=== PATIENT | female | born 1950 | race Caucasian/White ===

== ENCOUNTER 2018-10-13 14:03 | Inpatient (IN) | payer MEDICARE, OTHER ==
[~2018-10-13] VITALS: Ht 160 cm; Wt 53.5 kg
[2018-10-13] MEDS ORDERED: MAGNESIUM HYDROXIDE 30 ML UDC PO PRN (14:30)
[2018-10-13] MEDS ORDERED: TEMAZEPAM 7.5 MG CAPSULE PO PRN (14:30)
[2018-10-13] MEDS ORDERED: MAG HYDROX/AL HYDROX/SIMETH 30 ML UDC PO PRN (14:30)
[2018-10-13] MEDS ORDERED: ACET-2605 PO (14:55)
[2018-10-13] MEDS ORDERED: IPRA3AMP23 IH (14:55)
[2018-10-13] MEDS ORDERED: LORA1TAB PO (14:55)
[2018-10-13] MEDS ORDERED: ZOLP10TA6 PO (14:55)
[2018-10-13] MEDS ORDERED: ATOR10TA PO (14:55)
[2018-10-13] MEDS ORDERED: ALBU18HF2 IH (14:55)
[2018-10-13] MEDS ORDERED: TIZA4TAB4 PO (14:55)
[2018-10-13] MEDS ORDERED: UMEC62.5 INH (14:55)
[2018-10-13] MEDS ORDERED: TRAZ-214 PO (14:55)
[2018-10-13] MEDS ORDERED: BREX1TAB PO (14:55)
[2018-10-13] MEDS ORDERED: FLUT1BLS INH (14:55)
[2018-10-13] MEDS ORDERED: LURA60TA PO (14:55)
[2018-10-13] MEDS ORDERED: MONT10TA22 PO (14:55)
[2018-10-13] MEDS ORDERED: LEVO112T7 PO (14:55)
[2018-10-13] MEDS: LORAZEPAM 0.5 MG TABLET PO PRN (14:55)
[2018-10-13] MEDS ORDERED: PANT20TA3 PO (14:55)
[2018-10-13] MEDS ORDERED: DESV50TA PO (14:55)
[2018-10-13] MEDS: ACETAMINOPHEN 325 MG TABLET PO PRN (14:58)
[2018-10-13 16:00] VITALS: BP 122/95
[2018-10-13] MEDS ORDERED: OLANZAPINE 10 MG VIAL IM ONE (16:30)
[2018-10-13] MEDS: OLANZAPINE 2.5 MG TABLET PO SCH (17:21)
[2018-10-13] MEDS: IPRATROPIUM NEB FS 0.5 MG/2.5 ML AMPUL.NEB NEB SCH ×2 (18:30→19:30)
[2018-10-13] MEDS ORDERED: MISCELLANEOUS MED 1 EA EA PO PRN (18:30)
[2018-10-13] MEDS: HYDROCODONE/APAP 5/325MG 1 EACH TABLET PO PRN (19:19)
[2018-10-13 20:00] VITALS: BP 129/52
[2018-10-13] MEDS: DIVALPROEX SODIUM 125 MG TABLET.DR PO SCH (21:37)
[2018-10-14] MEDS: IPRATROPIUM NEB FS 0.5 MG/2.5 ML AMPUL.NEB NEB SCH ×4 (01:30→19:30)
[2018-10-14 08:00] VITALS: BP 112/66
[2018-10-14 08:01] LABS: POTASSIUM 3.5 mmol/L (3.5-5.1)
[2018-10-14 08:02] LABS: ALBUMIN 3.1 g/dL (3.4-5.0); BILIRUBIN,TOTAL 0.3 mg/dL (0.2-1.0); CALCIUM, SERUM 8.7 mg/dL (8.5-10.1); CREATININE 0.7 mg/dL (0.6-1.3); TOTAL PROTEIN, SERUM 5.8 g/dL (6.4-8.2)
[2018-10-14 08:03] LABS: CHOLESTEROL 171 mg/dL (<200); HDL CHOLESTEROL 48 mg/dL (40-60); LDL 102 mg/dL (0-99); TRIGLYCERIDES 167 mg/dL (30-150)
[2018-10-14] MEDS: FLUTICASONE/VILANTEROL 1 EACH BLST.W.DEV IH SCH (09:00)
[2018-10-14] MEDS: LEVOTHYROXINE SODIUM 112 MCG TABLET PO SCH (09:33)
[2018-10-14] MEDS: OLANZAPINE 2.5 MG TABLET PO SCH ×2 (09:33→16:12)
[2018-10-14] MEDS: DIVALPROEX SODIUM 125 MG TABLET.DR PO SCH ×2 (09:33→20:19)
[2018-10-14] MEDS: MONTELUKAST SODIUM (10MG) 10 MG TABLET PO SCH (09:33)
[2018-10-14] MEDS: ATORVASTATIN 10 MG TABLET PO SCH (09:33)
[2018-10-14] MEDS: NICOTINE PATCH (7MG) 7 MG PATCH.TD24 TD SCH (09:35)
[2018-10-14] MEDS: PANTOPRAZOLE 40 MG TABLET.DR PO SCH (09:36)
[2018-10-14] MEDS: HYDROCODONE/APAP 5/325MG 1 EACH TABLET PO PRN ×2 (09:48→20:20)
[2018-10-14] MEDS ORDERED: OLANZAPINE 10 MG VIAL IM ONE (11:30)
[2018-10-14] MEDS ORDERED: ONDANSETRON HCL/PF 4 MG/2 ML VIAL ONE (12:11)
[2018-10-14] MEDS: ACETAMINOPHEN 325 MG TABLET PO PRN (14:40)
[2018-10-14 16:00] VITALS: BP 90/55
[2018-10-14] MEDS: TIZANIDINE HCL 4 MG TABLET PO SCH (18:00)
[2018-10-14 20:00] VITALS: BP 100/61
[2018-10-15] MEDS: IPRATROPIUM NEB FS 0.5 MG/2.5 ML AMPUL.NEB NEB SCH ×4 (01:30→19:30)
[2018-10-15 08:00] VITALS: BP 101/63
[2018-10-15] MEDS: FLUTICASONE/VILANTEROL 1 EACH BLST.W.DEV IH SCH (09:00)
[2018-10-15] MEDS: PANTOPRAZOLE 40 MG TABLET.DR PO SCH (09:03)
[2018-10-15] MEDS: LEVOTHYROXINE SODIUM 112 MCG TABLET PO SCH (09:03)
[2018-10-15] MEDS: MONTELUKAST SODIUM (10MG) 10 MG TABLET PO SCH (09:03)
[2018-10-15] MEDS: ATORVASTATIN 10 MG TABLET PO SCH (09:03)
[2018-10-15] MEDS: NICOTINE PATCH (7MG) 7 MG PATCH.TD24 TD SCH (09:03)
[2018-10-15] MEDS: DIVALPROEX SODIUM 125 MG TABLET.DR PO SCH ×2 (09:03→21:52)
[2018-10-15] MEDS: OLANZAPINE 2.5 MG TABLET PO SCH ×2 (09:04→15:48)
[2018-10-15] MEDS: HYDROCODONE/APAP 5/325MG 1 EACH TABLET PO PRN ×2 (09:04→18:01)
[2018-10-15 16:00] VITALS: BP 122/73
[2018-10-15] MEDS: TIZANIDINE HCL 4 MG TABLET PO SCH (17:24)
[2018-10-15 20:00] VITALS: BP 98/56
[2018-10-15] MEDS: TRAZODONE 50 MG TABLET PO PRN (21:52)
[2018-10-16] MEDS: IPRATROPIUM NEB FS 0.5 MG/2.5 ML AMPUL.NEB NEB SCH ×4 (01:30→20:56)
[2018-10-16 08:00] VITALS: BP 109/61
[2018-10-16] MEDS: FLUTICASONE/VILANTEROL 1 EACH BLST.W.DEV IH SCH (08:14)
[2018-10-16] MEDS: LEVOTHYROXINE SODIUM 112 MCG TABLET PO SCH (08:37)
[2018-10-16] MEDS: ATORVASTATIN 10 MG TABLET PO SCH (08:37)
[2018-10-16] MEDS: HYDROCODONE/APAP 5/325MG 1 EACH TABLET PO PRN ×2 (08:37→20:47)
[2018-10-16] MEDS: OLANZAPINE 2.5 MG TABLET PO SCH ×2 (08:37→15:39)
[2018-10-16] MEDS: DIVALPROEX SODIUM 125 MG TABLET.DR PO SCH ×2 (08:37→20:31)
[2018-10-16] MEDS: NICOTINE PATCH (7MG) 7 MG PATCH.TD24 TD SCH (08:37)
[2018-10-16] MEDS: MONTELUKAST SODIUM (10MG) 10 MG TABLET PO SCH (08:38)
[2018-10-16] MEDS: PANTOPRAZOLE 40 MG TABLET.DR PO SCH (08:39)
[2018-10-16] MEDS: LORAZEPAM 0.5 MG TABLET PO PRN (12:38)
[2018-10-16] MEDS: ACETAMINOPHEN 325 MG TABLET PO PRN (12:38)
[2018-10-16 16:00] VITALS: BP 117/64
[2018-10-16] MEDS: TIZANIDINE HCL 4 MG TABLET PO SCH (17:12)
[2018-10-16 20:00] VITALS: BP 112/57
[2018-10-16] MEDS: TRAZODONE 50 MG TABLET PO PRN (22:38)
[2018-10-17] MEDS: IPRATROPIUM NEB FS 0.5 MG/2.5 ML AMPUL.NEB NEB SCH ×4 (01:30→20:18)
[2018-10-17] MEDS: LEVOTHYROXINE SODIUM 112 MCG TABLET PO SCH (07:30)
[2018-10-17] MEDS: PANTOPRAZOLE 40 MG TABLET.DR PO SCH (07:30)
[2018-10-17 08:13] VITALS: BP 104/59
[2018-10-17] MEDS: DIVALPROEX SODIUM 125 MG TABLET.DR PO SCH (08:50)
[2018-10-17] MEDS: OLANZAPINE 2.5 MG TABLET PO SCH ×2 (08:51→17:24)
[2018-10-17] MEDS: ATORVASTATIN 10 MG TABLET PO SCH ×2 (08:52→12:56)
[2018-10-17] MEDS: MONTELUKAST SODIUM (10MG) 10 MG TABLET PO SCH (08:53)
[2018-10-17] MEDS: NICOTINE PATCH (7MG) 7 MG PATCH.TD24 TD SCH (08:53)
[2018-10-17] MEDS: FLUTICASONE/VILANTEROL 1 EACH BLST.W.DEV IH SCH (08:58)
[2018-10-17] MEDS: HYDROCODONE/APAP 5/325MG 1 EACH TABLET PO PRN ×2 (10:40→18:30)
[2018-10-17] MEDS: LORAZEPAM 0.5 MG TABLET PO PRN (14:21)
[2018-10-17 16:00] VITALS: BP 100/58
[2018-10-17] MEDS: TIZANIDINE HCL 4 MG TABLET PO SCH (17:24)
[2018-10-17 20:00] VITALS: BP 85/47
[2018-10-17] MEDS: ALBUTEROL FS 2.5 MG/0.5 ML VIAL.NEB NEB PRN (20:18)
[2018-10-17 21:00] VITALS: BP_SYST 124; BP_SYST 90; BP_DIAS 57; BP_DIAS 58
[2018-10-17] MEDS ORDERED: DIVALPROEX SODIUM 250 MG TABLET.DR PO SCH ×2 (21:00)
[2018-10-17 21:30] VITALS: BP 134/75
[2018-10-17] MEDS: DIVALPROEX SODIUM 500 MG TABLET.DR PO SCH (21:47)
[2018-10-17] MEDS: TRAZODONE 50 MG TABLET PO PRN (21:48)
[2018-10-18] MEDS: IPRATROPIUM NEB FS 0.5 MG/2.5 ML AMPUL.NEB NEB SCH ×4 (01:30→19:30)
[2018-10-18 07:15] LABS: CALCIUM, SERUM 8.7 mg/dL (8.5-10.1); CREATININE 0.8 mg/dL (0.6-1.3); POTASSIUM 4.1 mmol/L (3.5-5.1)
[2018-10-18 08:00] VITALS: BP 101/57
[2018-10-18] MEDS: DIVALPROEX SODIUM 250 MG TABLET.DR PO SCH (08:09)
[2018-10-18] MEDS: FLUTICASONE/VILANTEROL 1 EACH BLST.W.DEV IH SCH (08:09)
[2018-10-18] MEDS: NICOTINE PATCH (7MG) 7 MG PATCH.TD24 TD SCH (08:09)
[2018-10-18] MEDS: OLANZAPINE 2.5 MG TABLET PO SCH ×2 (08:09→17:13)
[2018-10-18] MEDS: LEVOTHYROXINE SODIUM 112 MCG TABLET PO SCH (08:09)
[2018-10-18] MEDS: PANTOPRAZOLE 40 MG TABLET.DR PO SCH (08:10)
[2018-10-18] MEDS: MONTELUKAST SODIUM (10MG) 10 MG TABLET PO SCH (08:10)
[2018-10-18] MEDS: ATORVASTATIN 10 MG TABLET PO SCH (08:10)
[2018-10-18] MEDS: HYDROCODONE/APAP 5/325MG 1 EACH TABLET PO PRN (08:21)
[2018-10-18] MEDS: LORAZEPAM 0.5 MG TABLET PO PRN ×2 (09:37→21:28)
[2018-10-18] MEDS: ACETAMINOPHEN 325 MG TABLET PO PRN (12:23)
[2018-10-18 16:01] VITALS: BP 100/56
[2018-10-18] MEDS: TIZANIDINE HCL 4 MG TABLET PO SCH (17:13)
[2018-10-18] MEDS: DIVALPROEX SODIUM 500 MG TABLET.DR PO SCH (21:28)
[2018-10-19] MEDS: IPRATROPIUM NEB FS 0.5 MG/2.5 ML AMPUL.NEB NEB SCH ×4 (00:43→19:54)
[2018-10-19 08:00] VITALS: BP 100/64
[2018-10-19] MEDS: DIVALPROEX SODIUM 250 MG TABLET.DR PO SCH (08:37)
[2018-10-19] MEDS: LEVOTHYROXINE SODIUM 112 MCG TABLET PO SCH (08:37)
[2018-10-19] MEDS: OLANZAPINE 2.5 MG TABLET PO SCH ×2 (08:38→13:07)
[2018-10-19] MEDS: ATORVASTATIN 10 MG TABLET PO SCH (08:38)
[2018-10-19] MEDS: MONTELUKAST SODIUM (10MG) 10 MG TABLET PO SCH (08:38)
[2018-10-19] MEDS: PANTOPRAZOLE 40 MG TABLET.DR PO SCH (08:39)
[2018-10-19] MEDS: FLUTICASONE/VILANTEROL 1 EACH BLST.W.DEV IH SCH (08:45)
[2018-10-19] MEDS: NICOTINE PATCH (7MG) 7 MG PATCH.TD24 TD SCH (09:17)
[2018-10-19] MEDS: HYDROCODONE/APAP 5/325MG 1 EACH TABLET PO PRN (09:17)
[2018-10-19] MEDS: LORAZEPAM 0.5 MG TABLET PO PRN ×2 (11:17→20:34)
[2018-10-19] MEDS: ACETAMINOPHEN 325 MG TABLET PO PRN (15:20)
[2018-10-19 16:00] VITALS: BP 101/56
[2018-10-19] MEDS ORDERED: OLANZAPINE 2.5 MG TABLET PO SCH (17:00)
[2018-10-19] MEDS: TIZANIDINE HCL 4 MG TABLET PO SCH (17:04)
[2018-10-19 20:18] VITALS: BP 89/52
[2018-10-19] MEDS: DIVALPROEX SODIUM 500 MG TABLET.DR PO SCH (20:34)
[2018-10-20] MEDS: IPRATROPIUM NEB FS 0.5 MG/2.5 ML AMPUL.NEB NEB SCH ×4 (01:30→20:22)
[2018-10-20 08:00] VITALS: BP 118/71
[2018-10-20] MEDS: ATORVASTATIN 10 MG TABLET PO SCH (09:05)
[2018-10-20] MEDS: LEVOTHYROXINE SODIUM 112 MCG TABLET PO SCH (09:05)
[2018-10-20] MEDS: DIVALPROEX SODIUM 250 MG TABLET.DR PO SCH ×2 (09:05→12:11)
[2018-10-20] MEDS: OLANZAPINE 2.5 MG TABLET PO SCH (09:06)
[2018-10-20] MEDS: MONTELUKAST SODIUM (10MG) 10 MG TABLET PO SCH (09:06)
[2018-10-20] MEDS: HYDROCODONE/APAP 5/325MG 1 EACH TABLET PO PRN ×2 (09:06→15:24)
[2018-10-20] MEDS: PANTOPRAZOLE 40 MG TABLET.DR PO SCH (09:06)
[2018-10-20] MEDS: FLUTICASONE/VILANTEROL 1 EACH BLST.W.DEV IH SCH (09:07)
[2018-10-20] MEDS: NICOTINE PATCH (7MG) 7 MG PATCH.TD24 TD SCH (09:07)
[2018-10-20] MEDS: LORAZEPAM 0.5 MG TABLET PO PRN ×2 (10:50→16:46)
[2018-10-20] MEDS: ACETAMINOPHEN 325 MG TABLET PO PRN (12:10)
[2018-10-20] MEDS ORDERED: OLANZAPINE 2.5 MG TABLET PO SCH (13:00)
[2018-10-20 16:00] VITALS: BP 100/60
[2018-10-20] MEDS: TIZANIDINE HCL 4 MG TABLET PO SCH (17:15)
[2018-10-20 20:00] VITALS: BP 93/62
[2018-10-20] MEDS: DIVALPROEX SODIUM 500 MG TABLET.DR PO SCH (21:03)
[2018-10-20] MEDS ORDERED: OLANZAPINE 5 MG TABLET PO SCH (22:00)
[2018-10-20] MEDS: ZOLPIDEM TARTRATE 5 MG TABLET PO PRN (22:10)
[2018-10-21] MEDS: IPRATROPIUM NEB FS 0.5 MG/2.5 ML AMPUL.NEB NEB SCH ×4 (01:30→20:08)
[2018-10-21 07:18] LABS: BASOPHILS % (AUTO) 0.3 % (0.0-2.0); EOSINOPHILS % (AUTO) 3.4 % (0.0-6.0); HEMATOCRIT 39 % (33-45); HEMOGLOBIN 13.1 g/dL (11.5-14.8); LYMPHOCYTES # (AUTO) 1.7 /CMM (0.8-4.8); LYMPHOCYTES % (AUTO) 29.7 % (20.0-44.0); MEAN CORPUSCULAR HGB CONC 34 g/dl (31.0-36.0); MEAN CORPUSCULAR VOLUME 86 fL (82-100); MONOCYTES # (AUTO) 0.5 /CMM (0.1-1.30); NEUTROPHILS # (AUTO) 3.4 /CMM (1.8-8.9); NEUTROPHILS % (AUTO) 58.6 % (43.0-81.0); PLATELET COUNT (AUTO) 224 /CMM (150-450); RED BLOOD CELL COUNT(AUTO) 4.53 MIL/uL (4.0-5.2); WHITE BLOOD COUNT (AUTO) 5.8 K/uL (4.3-11.0)
[2018-10-21 07:37] LABS: BILIRUBIN,TOTAL 0.3 mg/dL (0.2-1.0); CALCIUM, SERUM 8.6 mg/dL (8.5-10.1); CREATININE 0.8 mg/dL (0.6-1.3); MAGNESIUM 2.2 mg/dL (1.8-2.4); POTASSIUM 4.1 mmol/L (3.5-5.1); TOTAL PROTEIN, SERUM 5.9 g/dL (6.4-8.2)
[2018-10-21 08:00] VITALS: BP 129/65
[2018-10-21] MEDS: ALBUTEROL FS 2.5 MG/0.5 ML VIAL.NEB NEB PRN ×2 (08:14→13:34)
[2018-10-21] MEDS ORDERED: OLANZAPINE 2.5 MG TABLET PO SCH (09:00)
[2018-10-21] MEDS: OLANZAPINE 2.5 MG TABLET PO SCH ×3 (09:06→18:06)
[2018-10-21] MEDS: NICOTINE PATCH (7MG) 7 MG PATCH.TD24 TD SCH (09:06)
[2018-10-21] MEDS: DIVALPROEX SODIUM 250 MG TABLET.DR PO SCH ×2 (09:07→12:45)
[2018-10-21] MEDS: PANTOPRAZOLE 40 MG TABLET.DR PO SCH (09:07)
[2018-10-21] MEDS: ATORVASTATIN 10 MG TABLET PO SCH (09:07)
[2018-10-21] MEDS: MONTELUKAST SODIUM (10MG) 10 MG TABLET PO SCH (09:07)
[2018-10-21] MEDS: LEVOTHYROXINE SODIUM 112 MCG TABLET PO SCH (09:08)
[2018-10-21] MEDS: FLUTICASONE/VILANTEROL 1 EACH BLST.W.DEV IH SCH (09:18)
[2018-10-21] MEDS: LORAZEPAM 0.5 MG TABLET PO PRN (09:20)
[2018-10-21] MEDS: HYDROCODONE/APAP 5/325MG 1 EACH TABLET PO PRN ×2 (10:45→16:10)
[2018-10-21] MEDS ORDERED: OLANZAPINE 10 MG VIAL IM ONE (13:30)
[2018-10-21 16:00] VITALS: BP 115/65
[2018-10-21] MEDS: TIZANIDINE HCL 4 MG TABLET PO SCH (18:06)
[2018-10-21 20:00] VITALS: BP 98/60
[2018-10-21] MEDS: DIVALPROEX SODIUM 500 MG TABLET.DR PO SCH (21:25)
[2018-10-21] MEDS: ZOLPIDEM TARTRATE 5 MG TABLET PO PRN (21:25)
[2018-10-22] MEDS: IPRATROPIUM NEB FS 0.5 MG/2.5 ML AMPUL.NEB NEB SCH ×4 (01:29→19:41)
[2018-10-22] MEDS: ACETAMINOPHEN 325 MG TABLET PO PRN (02:57)
[2018-10-22 08:00] VITALS: BP 116/78
[2018-10-22] MEDS: OLANZAPINE 5 MG TABLET PO SCH ×3 (08:13→17:21)
[2018-10-22] MEDS: NICOTINE PATCH (7MG) 7 MG PATCH.TD24 TD SCH (08:13)
[2018-10-22] MEDS: MONTELUKAST SODIUM (10MG) 10 MG TABLET PO SCH (08:13)
[2018-10-22] MEDS: DIVALPROEX SODIUM 250 MG TABLET.DR PO SCH ×2 (08:13→12:25)
[2018-10-22] MEDS: LEVOTHYROXINE SODIUM 112 MCG TABLET PO SCH (08:13)
[2018-10-22] MEDS: LORAZEPAM 0.5 MG TABLET PO PRN (08:14)
[2018-10-22] MEDS: FLUTICASONE/VILANTEROL 1 EACH BLST.W.DEV IH SCH (08:14)
[2018-10-22] MEDS: PANTOPRAZOLE 40 MG TABLET.DR PO SCH (08:14)
[2018-10-22] MEDS: ATORVASTATIN 10 MG TABLET PO SCH (08:15)
[2018-10-22] MEDS: BENZTROPINE MESYLATE (1 MG) 1 MG TABLET PO SCH ×3 (11:44→17:21)
[2018-10-22] MEDS: LORAZEPAM 0.5 MG TABLET PO SCH ×2 (12:25→17:21)
[2018-10-22] MEDS: HYDROCODONE/APAP 5/325MG 1 EACH TABLET PO PRN (13:38)
[2018-10-22 16:00] VITALS: BP 118/71
[2018-10-22] MEDS: TIZANIDINE HCL 4 MG TABLET PO SCH (17:21)
[2018-10-22 20:00] VITALS: BP 93/57
[2018-10-22] MEDS: ZOLPIDEM TARTRATE 5 MG TABLET PO PRN (20:36)
[2018-10-22] MEDS: DIVALPROEX SODIUM 500 MG TABLET.DR PO SCH (20:36)
[2018-10-23] MEDS: ACETAMINOPHEN 325 MG TABLET PO PRN (00:18)
[2018-10-23] MEDS: IPRATROPIUM NEB FS 0.5 MG/2.5 ML AMPUL.NEB NEB SCH ×4 (00:50→19:35)
[2018-10-23 08:00] VITALS: BP 109/64
[2018-10-23] MEDS: NICOTINE PATCH (7MG) 7 MG PATCH.TD24 TD SCH (08:53)
[2018-10-23] MEDS: LEVOTHYROXINE SODIUM 112 MCG TABLET PO SCH (08:53)
[2018-10-23] MEDS: BENZTROPINE MESYLATE (1 MG) 1 MG TABLET PO SCH ×3 (08:53→17:19)
[2018-10-23] MEDS: ATORVASTATIN 10 MG TABLET PO SCH (08:53)
[2018-10-23] MEDS: LORAZEPAM 0.5 MG TABLET PO SCH ×3 (08:53→17:19)
[2018-10-23] MEDS: MONTELUKAST SODIUM (10MG) 10 MG TABLET PO SCH (08:53)
[2018-10-23] MEDS: PANTOPRAZOLE 40 MG TABLET.DR PO SCH (08:53)
[2018-10-23] MEDS: OLANZAPINE 5 MG TABLET PO SCH ×3 (08:54→17:19)
[2018-10-23] MEDS: FLUTICASONE/VILANTEROL 1 EACH BLST.W.DEV IH SCH (08:54)
[2018-10-23] MEDS: DIVALPROEX SODIUM 250 MG TABLET.DR PO SCH ×3 (08:55→17:19)
[2018-10-23] MEDS: HYDROCODONE/APAP 5/325MG 1 EACH TABLET PO PRN ×2 (10:39→18:49)
[2018-10-23 16:00] VITALS: BP 104/71
[2018-10-23] MEDS: TIZANIDINE HCL 4 MG TABLET PO SCH (17:20)
[2018-10-23 20:00] VITALS: BP 125/75
[2018-10-23 20:10] VITALS: BP 125/75
[2018-10-23] MEDS: DIVALPROEX SODIUM 500 MG TABLET.DR PO SCH (21:12)
[2018-10-23] MEDS: ZOLPIDEM TARTRATE 5 MG TABLET PO PRN (21:12)
[2018-10-23] MEDS: LORAZEPAM 0.5 MG TABLET PO PRN (22:48)
[2018-10-24] MEDS: IPRATROPIUM NEB FS 0.5 MG/2.5 ML AMPUL.NEB NEB SCH ×4 (01:30→19:18)
[2018-10-24 08:00] VITALS: BP 109/71
[2018-10-24] MEDS: OLANZAPINE 5 MG TABLET PO SCH ×2 (09:05→13:16)
[2018-10-24] MEDS: DIVALPROEX SODIUM 250 MG TABLET.DR PO SCH ×3 (09:05→16:55)
[2018-10-24] MEDS: ATORVASTATIN 10 MG TABLET PO SCH (09:05)
[2018-10-24] MEDS: BENZTROPINE MESYLATE (1 MG) 1 MG TABLET PO SCH ×3 (09:06→16:55)
[2018-10-24] MEDS: MONTELUKAST SODIUM (10MG) 10 MG TABLET PO SCH (09:06)
[2018-10-24] MEDS: LEVOTHYROXINE SODIUM 112 MCG TABLET PO SCH (09:06)
[2018-10-24] MEDS: PANTOPRAZOLE 40 MG TABLET.DR PO SCH (09:07)
[2018-10-24] MEDS: NICOTINE PATCH (7MG) 7 MG PATCH.TD24 TD SCH (09:07)
[2018-10-24] MEDS: LORAZEPAM 0.5 MG TABLET PO SCH ×3 (09:10→16:55)
[2018-10-24] MEDS: FLUTICASONE/VILANTEROL 1 EACH BLST.W.DEV IH SCH (09:10)
[2018-10-24] MEDS: HYDROCODONE/APAP 5/325MG 1 EACH TABLET PO PRN ×2 (11:38→18:04)
[2018-10-24] MEDS: ALBUTEROL FS 2.5 MG/0.5 ML VIAL.NEB NEB PRN ×2 (14:05→19:18)
[2018-10-24 16:00] VITALS: BP 120/67
[2018-10-24] MEDS: TIZANIDINE HCL 4 MG TABLET PO SCH (17:59)
[2018-10-24] MEDS: OLANZAPINE 2.5 MG TABLET PO SCH (18:00)
[2018-10-24 20:04] VITALS: BP 98/49
[2018-10-24] MEDS: DIVALPROEX SODIUM 500 MG TABLET.DR PO SCH (20:47)
[2018-10-24 21:00] VITALS: BP 130/78
[2018-10-24] MEDS: ZOLPIDEM TARTRATE 5 MG TABLET PO PRN (21:33)
[2018-10-25] MEDS: IPRATROPIUM NEB FS 0.5 MG/2.5 ML AMPUL.NEB NEB SCH (01:30)
[2018-10-25 08:00] VITALS: BP 104/59
[2018-10-25] MEDS: PANTOPRAZOLE 40 MG TABLET.DR PO SCH (08:19)
[2018-10-25] MEDS: BENZTROPINE MESYLATE (1 MG) 1 MG TABLET PO SCH ×2 (08:20→13:00)
[2018-10-25] MEDS: MONTELUKAST SODIUM (10MG) 10 MG TABLET PO SCH (08:20)
[2018-10-25] MEDS: ATORVASTATIN 10 MG TABLET PO SCH (08:20)
[2018-10-25] MEDS: DIVALPROEX SODIUM 250 MG TABLET.DR PO SCH ×2 (08:20→13:00)
[2018-10-25] MEDS: OLANZAPINE 2.5 MG TABLET PO SCH ×2 (08:20→13:00)
[2018-10-25] MEDS: LEVOTHYROXINE SODIUM 112 MCG TABLET PO SCH (08:20)
[2018-10-25] MEDS: NICOTINE PATCH (7MG) 7 MG PATCH.TD24 TD SCH (08:20)
[2018-10-25] MEDS: LORAZEPAM 0.5 MG TABLET PO SCH ×2 (08:20→13:00)
[2018-10-25] MEDS: FLUTICASONE/VILANTEROL 1 EACH BLST.W.DEV IH SCH (08:31)
[2018-10-25] MEDS: HYDROCODONE/APAP 5/325MG 1 EACH TABLET PO PRN (08:34)
== END 2018-10-25 13:30 | DRG 885 ==
LOC: GPS 14:03
PROVIDERS: ADMIT Psychiatry & Neurology Psychosomatic Medicine; ATTEND Psychiatry & Neurology Psychosomatic Medicine
DX: F25.0 Schizoaffective disorder, bipolar type (principal); J44.1 Chronic obstructive pulmonary disease with (acute) exacerbation; N17.9 Acute kidney failure, unspecified; R45.851 Suicidal ideations; E44.0 Moderate protein-calorie malnutrition; F32.9 Major depressive disorder, single episode, unspecified; E78.5 Hyperlipidemia, unspecified; E03.9 Hypothyroidism, unspecified; F41.9 Anxiety disorder, unspecified; F29 Unspecified psychosis not due to a substance or known physiological condition; F13.90 Sedative, hypnotic, or anxiolytic use, unspecified, uncomplicated; Z73.6 Limitation of activities due to disability; Z98.890 Other specified postprocedural states; F17.200 Nicotine dependence, unspecified, uncomplicated; Z79.899 Other long term (current) drug therapy; E86.0 Dehydration; G89.4 Chronic pain syndrome; Z91.5 Personal history of self-harm
CPT/HCPCS: 36415; 80048-TC; 80053-TC; 80061-TC; 80164-TC; 83735-TC; 85025-TC; 87081-TC; 94799-TC; J2405; J3490

== ENCOUNTER 2019-12-21 13:30 | Inpatient (IN) | payer MEDICARE, OTHER ==
[~2019-12-21] VITALS: Ht 157.5 cm; Wt 51.7 kg
[~2019-12-21 13:30] MED LIST: ACET-2605 PO; ALBU18HF2 IH; ATOR10TA PO; FLUT1BLS INH; IPRA3AMP23 IH; LEVO112T7 PO; MONT10TA22 PO; PANT20TA3 PO; TIZA4TAB5 PO; UMEC62.5 INH
[2019-12-21] MEDS ORDERED: MAG HYDROX/AL HYDROX/SIMETH 30 ML UDC PO PRN (14:00)
[2019-12-21] MEDS ORDERED: BLOOD SUGAR DIAGNOSTIC 1 EACH STRIP IN ONE (14:00)
[2019-12-21] MEDS: LORAZEPAM 0.5 MG TABLET PO PRN (14:12)
--- NOTE | 2019-12-21 14:18 | NUR ---
GPS RN NOTE: ADMISSION AT 1345 PATIENT WAS RECEIVED ON THE UNIT. PATIENT IS A 69 YEAR OLD FEMALE. PATIENT IS ADMITTED ON A 5150 HOLD FOR DTS, "ADULT FEMALE CONTINUES OT ENDORSE SUICIDAL IDEATION AND DESIRE TO . ADULT FEMALE REPORTS PLANS, MEANS, INTENT TO KILL SELF TODAY BY OVERDOSING ON HER MEDICATIONS (PAIN AND PSYCHIATRIC). ADULT FEMALE PRESENTS TEARFUL, DEPRESSED, ANXIOUS AND SHAKY. ADULT FEMALE UNABLE TO PARTICIPATE IN A MEANINGFUL SAFETY PLAN DUE TO A MENTAL HEALTH DISORDER". UPON FACE TO FACE EVALUATION PATIENT PRESENTS TEARFUL, TREMULOUS, AND DEPRESSED. PATIENT CONTINUES TO VERBALIZE SI. PSYCHIATRIST DR TENORIO AND MD DR COVINGTON NOTIFIED OF ADMISSION. ORDERS PLACED. PATIENT SKIN CHECKED AND IS INTACT. NO WOUNDS NOTICED. PATIENT RECEIVED PATIENT HANDBOOK. SAFETY PRECAUTIONS IN PLACE. BED LOW AND LOCKED WITH 2 SIDE RAILS UP FOR SAFETY. CALL GARCIA WITHIN REACH. WILL CONTINUE TO MONITOR Q15 FOR SAFETY MOOD AND BEHAVIOR GPS POLICY.
[2019-12-21 14:47] VITALS: BP 134/108
[2019-12-21] MEDS: NICOTINE PATCH (7MG) 7 MG PATCH.TD24 TD SCH (15:03)
[2019-12-21] MEDS ORDERED: MISCELLANEOUS MED 1 EA EA PO PRN (15:30)
[2019-12-21] MEDS ORDERED: ESCI10TA PO (15:56)
[2019-12-21] MEDS ORDERED: POLY17PO4 PO (15:56)
[2019-12-21] MEDS ORDERED: CALC-7 PO (15:56)
[2019-12-21] MEDS ORDERED: MIRT45TA83 PO (15:56)
[2019-12-21] MEDS ORDERED: HYDR-3972 PO (15:56)
[2019-12-21] MEDS ORDERED: LEVO88TA5 PO (15:56)
[2019-12-21] MEDS ORDERED: ACET-868 PO (15:56)
[2019-12-21] MEDS ORDERED: CHLO25TA13 PO (15:56)
[2019-12-21] MEDS ORDERED: MULT-659 PO (15:56)
[2019-12-21] MEDS ORDERED: PANT40TA4 PO (15:56)
[2019-12-21] MEDS ORDERED: NALO25TA PO (15:58)
[2019-12-21 16:00] VITALS: BP 108/59
[2019-12-21] MEDS ORDERED: ALBUTEROL SULFATE 8 GM HFA.AER.AD IH PRN (16:30)
[2019-12-21] MEDS ORDERED: ACETAMINOPHEN 325 MG TABLET PO PRN (16:30)
--- NOTE | 2019-12-21 16:45 | NUR ---
GPS RN NOTE: ADMISSION NOTIFICATION MOTHER, ROMULO VILLASENOR, NOTIFIED OF ADMISSION
[2019-12-21] MEDS ORDERED: ALBUTEROL FS 2.5 MG/3 ML VIAL.NEB NEB PRN (17:00)
[2019-12-21] MEDS ORDERED: Medication Not On Formulary EA (Ipratropium/Albuterol Sulfate (Duoneb 2.5-0.5 Mg/3 Ml So IH SCH (17:00)
[2019-12-21] MEDS: FLUTICASONE/VILANTEROL 1 EACH BLST.W.DEV IH SCH (17:45)
[2019-12-21] MEDS: MONTELUKAST SODIUM (10MG) 10 MG TABLET PO SCH (17:51)
[2019-12-21] MEDS ORDERED: TIZANIDINE HCL 4 MG TABLET PO SCH (18:00)
[2019-12-21] MEDS: ACETAMINOPHEN 325 MG TABLET PO PRN (19:12)
[2019-12-21] MEDS: IPRATROPIUM NEB FS 0.5 MG/2.5 ML AMPUL.NEB NEB SCH (19:30)
--- NOTE | 2019-12-21 19:30 | NUR ---
GPS RN NOTE, RECEIVED PATIENT AWAKE AND IN BED, PATIENT HAS A COMPLAINT OF LOWER BACK PAIN AT 3 OUT 10 ON THE PAIN SCALE. PATIENT IS RECEIVING ORAL PAIN MEDICATION FOR THIS PAIN. PATIENT IS DISPLAYING NO S/S OF APPARENT DISTRESS AT THIS TIME. PATIENT BREATHING IS UNLABORED WITH EQUAL RISE AND FALL OF THE CHEST. PATIENT IS ALERT AND ORIENTED X 3 ON ROOM AIR WITH A SPO2 98 %. PATIENT IS COMPLIANT WITH MEDICATION, DISORGANIZED, DEPRESSED, CRYING AT TIMES, AND COOPERATIVE. PATIENT DENIES SUICIDE IDEATIONS AND HOMICIDAL IDEATIONS AT THIS TIME. PATIENT ASSISTED WITH TURNING AND REPOSITIONING Q2HR AND PRN FOR COMFORT AND CIRCULATION. PATIENT HAS NO NEEDS AT THIS TIME. PATIENT EDUCATED ON THE USE OF THE CALL GARCIA. PATIENT BED SIDE RAILS UP X 2 FOR SAFETY, BED IS LOCKED, AND LOW. WILL CONTINUE TO MONITOR Q15MIN WITH THE HELP OF STAFF TO MAINTAIN SAFETY.
[2019-12-21 20:00] VITALS: BP 101/62
--- NOTE | 2019-12-21 20:10 | NUR ---
GPS RN NOTE, PATIENT HAS A COMPLAINT OF CHRONIC BACK PAIN AT 5 OUT 10 ON THE PAIN SCALE AND IS REQUESTING NORCO AT THIS TIME. PAGED [facility] AND INFORMED JANUARY ESTRADA DNP OF MY FINDINGS. JANUARY ESTRADA DNP ORDERED TO GIVE NORCO 5-325 1 TAB PO Q6HR PRN. ALL ORDERS NOTED AND CARRIED OUT WILL CONTINUE TO MONITOR THIS PATIENT.
[2019-12-21] MEDS: ZOLPIDEM TARTRATE 5 MG TABLET PO PRN (21:14)
--- NOTE | 2019-12-21 21:14 | NUR ---
GPS RN NOTE, PATIENT HAS A COMPLAINT OF NOT BEING ABLE TO SLEEP AND IS REQUESTING AMBIEN AT THIS TIME. PATIENT VITAL SIGNS ARE STABLE. GAVE AMBIEN 5MG PO HS PRN ORDERED. WILL REASSESS FOR INSOMNIA AND I WILL CONTINUE TO MONITOR THIS PATIENT.
[2019-12-21] MEDS: ATORVASTATIN 10 MG TABLET PO SCH (22:06)
[2019-12-22] MEDS: IPRATROPIUM NEB FS 0.5 MG/2.5 ML AMPUL.NEB NEB SCH ×4 (01:30→19:30)
[2019-12-22] MEDS: PANTOPRAZOLE 40 MG TABLET.DR PO SCH (07:28)
[2019-12-22] MEDS: LEVOTHYROXINE SODIUM 88 MCG TABLET PO SCH (07:28)
[2019-12-22] MEDS ORDERED: PANTOPRAZOLE 40 MG TABLET.DR PO SCH (07:30)
[2019-12-22] MEDS ORDERED: LEVOTHYROXINE SODIUM 112 MCG TABLET PO SCH (07:30)
[2019-12-22] MEDS: LORAZEPAM 0.5 MG TABLET PO PRN ×2 (07:43→15:38)
--- NOTE | 2019-12-22 07:46 | NUR ---
RN NOTE-PT TEARFUL, CRYING, ANXIOUS AND RESTLESS. ATIVAN 1 MG GIVEN AT THIS TIME. REASSURED AND ASSISTED, PROVIDING CALM ENVIRONMENT.
[2019-12-22 07:47] VITALS: BP 94/59
[2019-12-22 08:05] LABS: ALBUMIN 3.6 g/dL (3.4-5.0); BILIRUBIN,TOTAL 0.3 mg/dL (0.2-1.0); CHOLESTEROL 194 mg/dL (<200); HDL CHOLESTEROL 47 mg/dL (40-60); LDL 114 mg/dL (0-99); POTASSIUM 4.2 mmol/L (3.5-5.1); TOTAL PROTEIN, SERUM 6.4 g/dL (6.4-8.2); TRIGLYCERIDES 203 mg/dL (30-150)
--- NOTE | 2019-12-22 09:00 | NUR ---
RN NOTE- PT TEARFUL ANXIOUS AND RESTLESS. EATING BREAKFAST IN ROOM THOUGH DIFFICULTY NOTED W ANXIETY. ATIVAN 1 MG GIVEN . REASSURED AND ASSISTED. STATING SHES DEPRESSED THOUGH DENYING SI THIS MOMENT. WILL CONTINUE TO CLOSELY MONITOR AND EVALUATE FOR ANXIETY DEPRESSION AND SI
[2019-12-22] MEDS: POLYETHYLENE GLYCOL 3350 17 GM POWD.PACK PO SCH (09:13)
[2019-12-22] MEDS: NICOTINE PATCH (7MG) 7 MG PATCH.TD24 TD SCH (09:13)
[2019-12-22] MEDS: MULTIVIT W/MINERALS 1 TAB TABLET PO SCH (09:13)
[2019-12-22] MEDS: CALCIUM CARB 250MG /VITAMIN D 1 UDTAB PO SCH (09:13)
[2019-12-22] MEDS: FLUTICASONE/VILANTEROL 1 EACH BLST.W.DEV IH SCH ×2 (09:16→17:33)
--- NOTE | 2019-12-22 12:55 | NUR ---
Family Contact: SW called the pts daughter, Joan ([phone]), and left a voicemail that stated that the pt is in the hospital and that the SW would like to discuss discharge planning.
[2019-12-22] MEDS: HYDROCODONE/APAP 5/325MG 1 EACH TABLET PO PRN (13:18)
[2019-12-22] MEDS: VENLAFAXINE XR 75 MG CAP.SR.24H PO SCH (14:19)
[2019-12-22] MEDS: DIVALPROEX SODIUM 500 MG TABLET.DR PO SCH ×2 (14:19→21:30)
--- NOTE | 2019-12-22 14:57 | NUR ---
Initial Discharge Plan: Pt currently resides alone in her home located at [address] [place] [address], [facility], [place] [address]; ([phone]). Per pt, she would like to return to the apartment. SW will work with the pt and the MD regarding appropriate discharge planning. SW will form a safe and proper discharge.
[2019-12-22 16:08] VITALS: BP 138/89
--- NOTE | 2019-12-22 16:22 | NUR ---
Individual Intervention: SW met with the pt at bedside and discussed the pts current situation. Pt stated that she has been feeling depressed due to the current conditions of the world and stated that she has never felt this depressed including the previous hospitalizations that she had that resulted in her receiving ECT. Pt appeared to be in a labile mood and presented with a tearful affect. Pts speech is tangential and pressured. Pt is not deemed appropriate at this time.
[2019-12-22] MEDS: MONTELUKAST SODIUM (10MG) 10 MG TABLET PO SCH (17:33)
--- NOTE | 2019-12-22 20:54 | NUR ---
PT REFUSED 0 ATROVENT TREATMENT WITH RESPIRATORY THERAPIST, STATES SHE'S FINE. NO S/S OF RESPIRATORY DISTRESS. WILL CONTINUE TO MONITOR.
[2019-12-22] MEDS: QUETIAPINE FUMARATE 100 MG TABLET PO SCH (21:30)
[2019-12-22] MEDS: ATORVASTATIN 10 MG TABLET PO SCH (21:31)
[2019-12-23] MEDS: IPRATROPIUM NEB FS 0.5 MG/2.5 ML AMPUL.NEB NEB SCH ×3 (01:30→19:49)
[2019-12-23 02:21] VITALS: BP 105/68
[2019-12-23] MEDS: PANTOPRAZOLE 40 MG TABLET.DR PO SCH (07:30)
[2019-12-23] MEDS: LEVOTHYROXINE SODIUM 88 MCG TABLET PO SCH (07:30)
[2019-12-23 08:00] VITALS: BP 112/61
[2019-12-23] MEDS: NICOTINE PATCH (7MG) 7 MG PATCH.TD24 TD SCH (08:37)
[2019-12-23] MEDS: VENLAFAXINE XR 75 MG CAP.SR.24H PO SCH (08:37)
[2019-12-23] MEDS: CALCIUM CARB 250MG /VITAMIN D 1 UDTAB PO SCH (08:38)
[2019-12-23] MEDS: MULTIVIT W/MINERALS 1 TAB TABLET PO SCH (08:38)
[2019-12-23] MEDS: DIVALPROEX SODIUM 500 MG TABLET.DR PO SCH ×2 (08:38→21:22)
[2019-12-23] MEDS: FLUTICASONE/VILANTEROL 1 EACH BLST.W.DEV IH SCH ×2 (08:39→16:03)
[2019-12-23] MEDS: POLYETHYLENE GLYCOL 3350 17 GM POWD.PACK PO SCH (08:42)
[2019-12-23] MEDS: LORAZEPAM 0.5 MG TABLET PO PRN ×2 (09:39→16:03)
--- NOTE | 2019-12-23 09:39 | NUR ---
RN NOTE"PATIENT C/O ANXIETY MEDICATED WITH ATIVAN 1 MG GIVEN WILL CONTINUE TO MONITOR .
[2019-12-23] MEDS: ACETAMINOPHEN 325 MG TABLET PO PRN (12:59)
--- NOTE | 2019-12-23 12:59 | NUR ---
RN NOTE :Patient c/o headache and medicated with tylenol 650mg will continue to monitor .
[2019-12-23] MEDS ORDERED: DIVALPROEX SODIUM 250 MG TABLET.DR PO SCH (13:00)
[2019-12-23 16:00] VITALS: BP 100/55
--- NOTE | 2019-12-23 16:12 | NUR ---
RN NOTE:PATIENT C/O ANXIETY MEDICATED WITH ATIVAN 1 MG GIVEN WILL CONTINUE TO MONITOR .
[2019-12-23] MEDS: MONTELUKAST SODIUM (10MG) 10 MG TABLET PO SCH (17:05)
[2019-12-23 20:00] VITALS: BP 104/59
--- NOTE | 2019-12-23 20:31 | NUR ---
GPS RN NOTES: RECEIVED PT IN BED AWAKE ALERT AND ORIENTED X3. APPEARS DEPRESSED, ANXIOUS, GUARDED, FLAT AFFECT, COOPERATIVE. DENIES ANY PAIN AT THIS TIME. NO S/S OF ANY DISTRESS. RESPIRATION EVEN AND UNLABORED WITH EQUAL RISE AND FALL OF THE CHEST, ON ROOM AIR WITH SPO2 OF 98%. REFUSED 1934 ATROVENT FS NEB TREATMENT, PER PT "I"M FINE". REALITY ORIENTATION DONE. PT DENIES SI AT THIS TIME. OFFERED FLUID AND SNACK TOLERATED. SAFETY AND FALL PRECAUTION OBSERVED, BED IN LOW LOCKED POSITION, CALL GARCIA WITHIN REACH. Q15 MINUTES OBSERVATION CONTINUED. WILL CONTINUE TO MONITOR PT FOR MOOD, SAFETY AND BEHAVIOR.
[2019-12-23] MEDS: ATORVASTATIN 10 MG TABLET PO SCH (21:22)
[2019-12-23] MEDS: QUETIAPINE FUMARATE 100 MG TABLET PO SCH (21:22)
[2019-12-24] MEDS: IPRATROPIUM NEB FS 0.5 MG/2.5 ML AMPUL.NEB NEB SCH ×4 (01:30→19:30)
--- NOTE | 2019-12-24 07:28 | NUR ---
GPS RN OPENING NOTE: RECEIVED PATIENT SLEEPING WITH NO SIGNS OF DISTRESS OR PAIN NOTED. PATIENT BREATHING IS EVEN AND UNLABORED. BED IS IN LOCKED POSITION AND LOW WITH 2 SIDE RAILS UP FOR SAFETY. WILL CONTINUE TO MONITOR Q15 FOR MOOD, SAFETY AND BEHAVIOR.
[2019-12-24 08:00] VITALS: BP 91/67
[2019-12-24] MEDS: PANTOPRAZOLE 40 MG TABLET.DR PO SCH (08:07)
[2019-12-24] MEDS: MULTIVIT W/MINERALS 1 TAB TABLET PO SCH (08:07)
[2019-12-24] MEDS: POLYETHYLENE GLYCOL 3350 17 GM POWD.PACK PO SCH (08:07)
[2019-12-24] MEDS: DIVALPROEX SODIUM 500 MG TABLET.DR PO SCH ×2 (08:07→21:15)
[2019-12-24] MEDS: LEVOTHYROXINE SODIUM 88 MCG TABLET PO SCH (08:07)
[2019-12-24] MEDS: FLUTICASONE/VILANTEROL 1 EACH BLST.W.DEV IH SCH ×2 (08:07→16:30)
[2019-12-24] MEDS: CALCIUM CARB 250MG /VITAMIN D 1 UDTAB PO SCH (08:07)
[2019-12-24] MEDS: NICOTINE PATCH (7MG) 7 MG PATCH.TD24 TD SCH (08:07)
[2019-12-24] MEDS: VENLAFAXINE XR 75 MG CAP.SR.24H PO SCH (08:07)
[2019-12-24] MEDS: LORAZEPAM 0.5 MG TABLET PO PRN ×2 (08:52→15:59)
--- NOTE | 2019-12-24 08:52 | NUR ---
gps rn note: anxiety patient is noticeably anxious. shaking. crying. requested Ativan. Administered as ordered. Will continue to monitor.
[2019-12-24] MEDS: QUETIAPINE FUMARATE 25 MG TABLET PO SCH ×2 (12:41→16:30)
[2019-12-24] MEDS: HYDROCODONE/APAP 5/325MG 1 EACH TABLET PO PRN (12:41)
--- NOTE | 2019-12-24 12:50 | NUR ---
GPS RN NOTE: DEPRESSION PATIENT IS NOTICEABLY DEPRESSED, UNABLE TO STOP CRYING, HYPERVENTILATING, SHAKING, TREMBLING, REPEATING "I JUST WANT TO " "I CAN'T TAKE THIS ANYMORE".
[2019-12-24 16:10] VITALS: BP 118/78
[2019-12-24] MEDS: MONTELUKAST SODIUM (10MG) 10 MG TABLET PO SCH (17:02)
--- NOTE | 2019-12-24 19:35 | NUR ---
GPS RN OPENING NOTE: RECEIVED PT IN BED READING. AWAKE ALERT AND ORIENTED X3. APPEARS DEPRESSED, ANXIOUS, GUARDED, FLAT AFFECT, COOPERATIVE. DENIES ANY PAIN AT THIS TIME. NO S/S OF ANY DISTRESS. RESPIRATION EVEN AND UNLABORED WITH EQUAL RISE AND FALL OF THE CHEST, ON ROOM AIR WITH SPO2 OF 100%. REALITY ORIENTATION DONE. PT DENIES SI AT THIS TIME.SAFETY AND FALL PRECAUTION OBSERVED, BED IN LOW LOCKED POSITION, CALL GARCIA WITHIN REACH. Q15 MINUTES OBSERVATION CONTINUED. WILL CONTINUE TO MONITOR PT FOR MOOD, SAFETY AND BEHAVIOR.
[2019-12-24 20:07] VITALS: BP 100/59
[2019-12-24] MEDS: QUETIAPINE FUMARATE 100 MG TABLET PO SCH (21:15)
[2019-12-24] MEDS: ATORVASTATIN 10 MG TABLET PO SCH (21:16)
[2019-12-25] MEDS: IPRATROPIUM NEB FS 0.5 MG/2.5 ML AMPUL.NEB NEB SCH ×4 (01:30→19:30)
[2019-12-25] MEDS: PANTOPRAZOLE 40 MG TABLET.DR PO SCH (07:35)
[2019-12-25] MEDS: LEVOTHYROXINE SODIUM 88 MCG TABLET PO SCH (07:35)
[2019-12-25 08:00] VITALS: BP 115/65
[2019-12-25] MEDS: LORAZEPAM 0.5 MG TABLET PO PRN ×2 (08:27→16:29)
--- NOTE | 2019-12-25 08:27 | NUR ---
RN NOTE- PT WEEPING, TEARFUL, ANXIOUS. ATIVAN 1 MG GIVEN AT THIS TIME
[2019-12-25] MEDS: VENLAFAXINE XR 75 MG CAP.SR.24H PO SCH (08:28)
[2019-12-25] MEDS: NICOTINE PATCH (7MG) 7 MG PATCH.TD24 TD SCH (08:28)
[2019-12-25] MEDS: CALCIUM CARB 250MG /VITAMIN D 1 UDTAB PO SCH (08:29)
[2019-12-25] MEDS: MULTIVIT W/MINERALS 1 TAB TABLET PO SCH (08:29)
[2019-12-25] MEDS: QUETIAPINE FUMARATE 25 MG TABLET PO SCH ×3 (08:29→17:28)
[2019-12-25] MEDS: POLYETHYLENE GLYCOL 3350 17 GM POWD.PACK PO SCH (08:29)
[2019-12-25] MEDS: DIVALPROEX SODIUM 500 MG TABLET.DR PO SCH ×2 (08:29→21:12)
[2019-12-25] MEDS: FLUTICASONE/VILANTEROL 1 EACH BLST.W.DEV IH SCH ×2 (08:36→17:28)
--- NOTE | 2019-12-25 09:36 | NUR ---
RN NOTE - PT IN ROOM CRYING, TEARFUL, STATES "I WANT TO " CONTRACTED FOR SAFETY, MONITORING CLOSELY IN RUIZ BY PT ROOM, MED COMPLIANT AT PRESENT, PO INTAKE SURPRISINGLY GOOD AT AM MEAL. DENIES HI AH VH. CONTINUE TO ASSURE AND ASSIST, MONITORING FOR SI AND BEHAVIOR, PROVIDE CALM THERAPEUTIC ENVIRONMENT
[2019-12-25] MEDS: ACETAMINOPHEN 325 MG TABLET PO PRN (09:48)
--- NOTE | 2019-12-25 09:48 | NUR ---
RN NOTE- ANALGESIC/ PT C/O HEADACHE. TYLENOL 650 MG GIVEN
[2019-12-25] MEDS: HYDROCODONE/APAP 5/325MG 1 EACH TABLET PO PRN (12:10)
--- NOTE | 2019-12-25 12:11 | NUR ---
Probable Cause Hearing Notification: SW called the pts daughter, Joan ([phone]), and left a voicemail that stated that the pt is in the hospital and that the SW would like to discuss discharge planning. SW also stated that the pt has a probable cause hearing today and explained what the entails.
--- NOTE | 2019-12-25 14:42 | NUR ---
SNF Referral: SW faxed a referral to [facility] with attn to Stella to the fax number: [phone] and to [facility] with attn to Yesika to the fax number: [phone].
--- NOTE | 2019-12-25 15:53 | NUR ---
Family Contact: Pts mother, Nerissa ([phone]), and stated that the pt does not do well on Ativan. She expressed that she would like the pt to be taken off of it. SW stated that she would inform the nurses/MDs about the concern.
[2019-12-25 16:00] VITALS: BP 100/57
--- NOTE | 2019-12-25 16:24 | NUR ---
Individual Intervention: SW met with the pt at bedside and attempted to discuss the pts depression and state of distress. Pt appeared to be in a labile mood and presented with a tearful affect. Pts speech was tangential and pressured which made it difficult for the SW to understand what she was saying and for the SW to speak. Pt is not deemed appropriate at this time.
--- NOTE | 2019-12-25 16:25 | NUR ---
Family Contact: Pts daughter, Joan ([phone]), called the SW back and stated that she believes that the pt could really benefit from being in a nursing facility. She stated that the pt has been in many hospitals and that trying a long term could be helpful.
--- NOTE | 2019-12-25 16:29 | NUR ---
RN NOTE- PT W INCREASED ANXIETY AND TEARFULNESS. STATED ATIVAN DOESNT WORK. CALLED DR TENORIO. HE STATED WE COULD RECORDING ARTIST HER ZYPREXA INJECTION OR CONT W ATIVAN. PT DECIDED TO CONTINUE W ATIVAN 1 MG PO. GIVEN NOW
--- NOTE | 2019-12-25 17:40 | NUR ---
RN NOTE-ANXIETY/ RX EFFECTIVE. PT CALMER
[2019-12-25] MEDS: MONTELUKAST SODIUM (10MG) 10 MG TABLET PO SCH (17:50)
[2019-12-25 20:08] VITALS: BP 107/71
[2019-12-25] MEDS: QUETIAPINE FUMARATE 100 MG TABLET PO SCH (21:12)
[2019-12-25] MEDS: ATORVASTATIN 10 MG TABLET PO SCH (21:12)
[2019-12-26] MEDS: IPRATROPIUM NEB FS 0.5 MG/2.5 ML AMPUL.NEB NEB SCH ×4 (01:30→19:30)
[2019-12-26] MEDS: LEVOTHYROXINE SODIUM 88 MCG TABLET PO SCH (07:21)
[2019-12-26] MEDS: PANTOPRAZOLE 40 MG TABLET.DR PO SCH (07:21)
[2019-12-26 08:00] VITALS: BP 138/64
[2019-12-26] MEDS: LORAZEPAM 0.5 MG TABLET PO PRN (08:25)
--- NOTE | 2019-12-26 08:26 | NUR ---
RN NOTE- PT W TEARFULNESS ANXIETY. ATIVAN 1 MG GIVEN
[2019-12-26] MEDS: NICOTINE PATCH (7MG) 7 MG PATCH.TD24 TD SCH (08:41)
[2019-12-26] MEDS: CALCIUM CARB 250MG /VITAMIN D 1 UDTAB PO SCH (08:41)
[2019-12-26] MEDS: DIVALPROEX SODIUM 500 MG TABLET.DR PO SCH ×2 (08:41→21:33)
[2019-12-26] MEDS: POLYETHYLENE GLYCOL 3350 17 GM POWD.PACK PO SCH (08:41)
[2019-12-26] MEDS: VENLAFAXINE XR 75 MG CAP.SR.24H PO SCH (08:41)
[2019-12-26] MEDS: QUETIAPINE FUMARATE 25 MG TABLET PO SCH ×3 (08:41→17:06)
[2019-12-26] MEDS: MULTIVIT W/MINERALS 1 TAB TABLET PO SCH (08:41)
[2019-12-26] MEDS: FLUTICASONE/VILANTEROL 1 EACH BLST.W.DEV IH SCH ×2 (08:57→17:06)
--- NOTE | 2019-12-26 09:00 | NUR ---
RN NOTE- PT RESTING IN ROOM, QUIETER THIS MORNING THOUGH STILL ANXIOUS AND REQUESTING PRNS. PO INTAKE GOOD, MED COMPLIANT, DIRECTABLE. DENIES WANTING TO HARM SELF BUT STATES "I THINK ABOUT IT"
--- NOTE | 2019-12-26 10:29 | NUR ---
SNF REFERRAL: SW contacted Stella, medication coordinator at [facility] Address: [place] [address] who stated pt has been accepted to the facility with a negative COVID-19 test.
[2019-12-26] MEDS: GABAPENTIN 100 MG CAPSULE PO SCH ×3 (10:32→17:06)
[2019-12-26] MEDS: ACETAMINOPHEN 325 MG TABLET PO PRN (11:20)
--- NOTE | 2019-12-26 11:28 | NUR ---
RN NOTE- PT C/O HEADACHE . TYLENOL 650 MG GIVEN
[2019-12-26 16:00] VITALS: BP 101/53
[2019-12-26] MEDS: MONTELUKAST SODIUM (10MG) 10 MG TABLET PO SCH (17:06)
[2019-12-26] MEDS: HYDROCODONE/APAP 5/325MG 1 EACH TABLET PO PRN (17:49)
[2019-12-26 20:18] VITALS: BP 95/57
[2019-12-26 21:32] VITALS: BP 106/60
[2019-12-26] MEDS: QUETIAPINE FUMARATE 100 MG TABLET PO SCH (21:33)
[2019-12-26] MEDS: ATORVASTATIN 10 MG TABLET PO SCH (21:33)
[2019-12-26 22:33] VITALS: BP 121/74
[2019-12-26] MEDS: ZOLPIDEM TARTRATE 5 MG TABLET PO PRN (22:38)
--- NOTE | 2019-12-26 22:38 | NUR ---
GPS RN NOTES: INSOMNIA PT C/O UNABLE TO SLEEP. PT STATED, " I CANT SLEEP. CAN I HAVE MT SLEEPING MEDICATION?" OFFERED AMBIEN 5 MG PO PRN ORDERED. VITALS CHECKED WNL. PT AGREED AND TOLERATED MEDICATION WELL. CONTINUE TO MONITOR.
[2019-12-27] MEDS: IPRATROPIUM NEB FS 0.5 MG/2.5 ML AMPUL.NEB NEB SCH (01:30)
--- NOTE | 2019-12-27 02:00 | NUR ---
GPS RN NOTES: SLEEPING WENT TO PT ROOM TO ASK IF PT NEEDED BREATHING TREATMENT ATROVENT THAT IS DUE. PT ASLEEP. EASY TO WAKE UP. WENT BACK TO SLEEP. BREATHING EVEN AND UNLABORED. NO S/S OF SOB. NO RESP DISTRESS NOTED. CONTINUE TO MONITOR.
[2019-12-27 08:00] VITALS: BP 105/68
[2019-12-27] MEDS: QUETIAPINE FUMARATE 25 MG TABLET PO SCH (08:08)
[2019-12-27] MEDS: CALCIUM CARB 250MG /VITAMIN D 1 UDTAB PO SCH (08:08)
[2019-12-27] MEDS: LEVOTHYROXINE SODIUM 88 MCG TABLET PO SCH (08:08)
[2019-12-27] MEDS: GABAPENTIN 100 MG CAPSULE PO SCH ×3 (08:08→16:33)
[2019-12-27] MEDS: MULTIVIT W/MINERALS 1 TAB TABLET PO SCH (08:08)
[2019-12-27] MEDS: PANTOPRAZOLE 40 MG TABLET.DR PO SCH (08:08)
[2019-12-27] MEDS: DIVALPROEX SODIUM 500 MG TABLET.DR PO SCH ×2 (08:08→21:23)
[2019-12-27] MEDS: NICOTINE PATCH (7MG) 7 MG PATCH.TD24 TD SCH (08:09)
[2019-12-27] MEDS: POLYETHYLENE GLYCOL 3350 17 GM POWD.PACK PO SCH (08:09)
[2019-12-27] MEDS: FLUTICASONE/VILANTEROL 1 EACH BLST.W.DEV IH SCH ×2 (08:09→16:33)
[2019-12-27] MEDS ORDERED: VENLAFAXINE XR 75 MG CAP.SR.24H PO SCH (09:00)
[2019-12-27] MEDS: ACETAMINOPHEN 325 MG TABLET PO PRN (10:52)
[2019-12-27] MEDS: HYDROCODONE/APAP 5/325MG 1 EACH TABLET PO PRN ×2 (13:57→20:07)
[2019-12-27 16:00] VITALS: BP 100/56
--- NOTE | 2019-12-27 16:18 | NUR ---
Individual Intervention: SW met with the pt at bedside and attempted to discuss the pts discharge plan. Pt began crying hysterically when the SW attempted to discuss a nursing facility. When the SW stated the reasons behind the suggested discharge plan and the pt refused to listen. Pt asked the SW to leave the room because she was "feeling depressed." SW deemed the pt inappropriate for individual therapy at this time.
[2019-12-27] MEDS: MONTELUKAST SODIUM (10MG) 10 MG TABLET PO SCH (17:04)
[2019-12-27 20:02] VITALS: BP 115/67
--- NOTE | 2019-12-27 20:07 | NUR ---
GPS RN NOTE: PAIN PT. C/O OF LOWER BACK PAIN 03/08 AND REQUESTED FOR PAIN MEDICINE. ADMINISTERED HYDROCODONE 5 MG/325 MG PO PRN ORDERED. WILL CONTINUE TO MONITOR
[2019-12-27] MEDS: ATORVASTATIN 10 MG TABLET PO SCH (21:23)
[2019-12-27] MEDS: MIRTAZAPINE 15 MG TABLET PO SCH (21:23)
[2019-12-27] MEDS: chlorproMAZINE HCL 25 MG TABLET PO SCH (21:24)
[2019-12-27] MEDS ORDERED: MIRTAZAPINE 15 MG TABLET PO SCH (22:00)
[2019-12-28 08:00] VITALS: BP 106/65
--- NOTE | 2019-12-28 08:00 | NUR ---
RECEIVED PT IN BED,CRYING FEELING FRUSTRATED ABOUT THE NOISE OF HER ROOMATE SAYING SHE WASN'T ABLE TO SLEEP GOOD LAST NIGHT. PT IS AWAKE ALERT AND ORIENTED X3. PT IS QUIET, ANXIOUS, GUARDED,EASILY TEARFUL AND COOPERATIVE. DENIES ANY PAIN NO S/S OF ANY DISTRESS. RESPIRATION EVEN AND UNLABORED WITH EQUAL RISE AND FALL OF THE CHEST, ON ROOM AIR. REALITY ORIENTATION DONE. PT DENIES SI AT THIS TIME.SAFETY AND FALL PRECAUTION OBSERVED, BED IN LOW LOCKED POSITION, CALL GARCIA WITHIN REACH. Q15 MINUTES OBSERVATION CONTINUED. WILL CONTINUE TO MONITOR PT FOR MOOD, SAFETY AND BEHAVIOR.
[2019-12-28] MEDS: ESCITALOPRAM OXALATE (10 MG) 10 MG TABLET PO SCH (08:35)
[2019-12-28] MEDS: POLYETHYLENE GLYCOL 3350 17 GM POWD.PACK PO SCH (08:35)
[2019-12-28] MEDS: GABAPENTIN 100 MG CAPSULE PO SCH ×3 (08:36→16:11)
[2019-12-28] MEDS: PANTOPRAZOLE 40 MG TABLET.DR PO SCH (08:36)
[2019-12-28] MEDS: MULTIVIT W/MINERALS 1 TAB TABLET PO SCH (08:36)
[2019-12-28] MEDS: HYDROCODONE/APAP 5/325MG 1 EACH TABLET PO PRN ×2 (08:36→17:49)
[2019-12-28] MEDS: CALCIUM CARB 250MG /VITAMIN D 1 UDTAB PO SCH (08:36)
[2019-12-28] MEDS: NICOTINE PATCH (7MG) 7 MG PATCH.TD24 TD SCH (08:36)
[2019-12-28] MEDS: LEVOTHYROXINE SODIUM 88 MCG TABLET PO SCH (08:36)
[2019-12-28] MEDS: LORAZEPAM 1 MG TABLET PO PRN (08:36)
[2019-12-28] MEDS: DIVALPROEX SODIUM 500 MG TABLET.DR PO SCH ×2 (08:36→21:47)
[2019-12-28] MEDS: FLUTICASONE/VILANTEROL 1 EACH BLST.W.DEV IH SCH ×2 (08:45→16:11)
--- NOTE | 2019-12-28 09:00 | NUR ---
ATIVAN AND NORCO PRN GIVEN WAS EFFECTIVE.PT WAS CRYING EARLIER C/O HAVING TERRIBLE HEADACHE FOR NOT BEING ABLE TO SLEEP GOOD LAST NIGHT BECAUSE OF HER NOISY AND TALKATIVE ROOMATE.
--- NOTE | 2019-12-28 10:47 | NUR ---
PT IS COMFORTABLY SLEEPING IN BED BUT AROUSABLE FOR THE PAST 2 HOURS.NO CRYING EPISODE NOTED.NO DISTRESS/DISCOMFORT NOTED.
--- NOTE | 2019-12-28 12:04 | NUR ---
INDIVIDUAL INTERVENTION: SW attempted to meet with pt at bedside. When SW introduced self pt stated, "I don't want to talk to you, you're just coming here to tell me bad news, leave." SW attempted to discuss pts negative feelings and pt became irritated and asked SW to leave. Based on pts labile mood she refused to participate in an individual session.
[2019-12-28] MEDS: hydrOXYzine PAMOATE 25 MG CAPSULE PO PRN (12:55)
--- NOTE | 2019-12-28 14:00 | NUR ---
RN-CO: Called RT([facility]) and made them aware that there is an order for EKG.
[2019-12-28 15:58] VITALS: BP 125/74
[2019-12-28] MEDS: MONTELUKAST SODIUM (10MG) 10 MG TABLET PO SCH (16:11)
[2019-12-28] MEDS: chlorproMAZINE HCL 25 MG TABLET PO PRN (16:30)
[2019-12-28] MEDS: ACETAMINOPHEN 325 MG TABLET PO PRN (16:30)
--- NOTE | 2019-12-28 17:54 | NUR ---
RN-CO: C/O OF BACK PAIN, NORCO GIVEN.
[2019-12-28 20:00] VITALS: BP 95/58
[2019-12-28] MEDS: ATORVASTATIN 10 MG TABLET PO SCH (21:47)
[2019-12-28] MEDS: MIRTAZAPINE 15 MG TABLET PO SCH (21:49)
[2019-12-28] MEDS: chlorproMAZINE HCL 25 MG TABLET PO SCH (22:20)
--- NOTE | 2019-12-29 04:08 | NUR ---
GPS RN NOTE. PT COVID RESULT IS NEGATIVE.
--- NOTE | 2019-12-29 07:33 | NUR ---
GPS RN OPENING NOTE: RECEIVED PATIENT SLEEPING IN BED WITH NO SIGNS OF DISTRESS OF PAIN. BREATHING IS EVEN AND UNLABORED WITH EQUAL RISE AND FALL OF CHEST. BED IS LOCKED IN LOW POSITION WITH 2 SIDE RAILS UP FOR SAFETY. WILL CONTINUE TO MONITOR Q15 FOR MOOD, SAFETY AND BEHAVIOR.
[2019-12-29 08:00] VITALS: BP 119/72
[2019-12-29 08:03] VITALS: BP 119/72
[2019-12-29] MEDS: POLYETHYLENE GLYCOL 3350 17 GM POWD.PACK PO SCH (09:03)
[2019-12-29] MEDS: DIVALPROEX SODIUM 500 MG TABLET.DR PO SCH ×2 (09:03→21:34)
[2019-12-29] MEDS: LEVOTHYROXINE SODIUM 88 MCG TABLET PO SCH (09:03)
[2019-12-29] MEDS: NICOTINE PATCH (7MG) 7 MG PATCH.TD24 TD SCH (09:03)
[2019-12-29] MEDS: CALCIUM CARB 250MG /VITAMIN D 1 UDTAB PO SCH (09:03)
[2019-12-29] MEDS: ESCITALOPRAM OXALATE (10 MG) 10 MG TABLET PO SCH (09:03)
[2019-12-29] MEDS: MULTIVIT W/MINERALS 1 TAB TABLET PO SCH (09:03)
[2019-12-29] MEDS: GABAPENTIN 100 MG CAPSULE PO SCH (09:03)
[2019-12-29] MEDS: FLUTICASONE/VILANTEROL 1 EACH BLST.W.DEV IH SCH ×2 (09:03→16:46)
[2019-12-29] MEDS: PANTOPRAZOLE 40 MG TABLET.DR PO SCH (09:03)
[2019-12-29] MEDS: LORAZEPAM 1 MG TABLET PO PRN (11:57)
--- NOTE | 2019-12-29 12:43 | NUR ---
Individual Intervention: SW met with the pt at bedside and attempted to discuss the pts discharge plan. Pt began crying hysterically when the SW attempted to discuss a nursing facility. Pt stated that she could not talk about this topic and asked the SW to "go away." SW deemed the pt inappropriate for therapy at this time.
--- NOTE | 2019-12-29 13:12 | NUR ---
GPS RN NOTE: SI PATIENT HAS BEEN CRYING. CAME TO NURSING STATION STATING THAT "I CAN'T TAKE THIS ANYMORE, I WANT TO " "IM IN TOO MUCH PAIN" "IM SORRY BUT I WILL HAVE TO LEAVE ME CHILDREN" "I WANT TO ". ATIVAN ADMINISTERED PRN ORDERED. PATIENTS NEEDS MET. RN AND MICROSCOPIST STAYED BEDSIDE WITH PATIENT. WILL CONTINUE TO MONITOR Q15 FOR MOOD, SAFETY AND BEHAVIOR
[2019-12-29] MEDS: chlorproMAZINE HCL 25 MG TABLET PO PRN (13:22)
[2019-12-29] MEDS: GABAPENTIN 300 MG CAPSULE PO SCH ×2 (13:22→16:46)
[2019-12-29] MEDS: HYDROCODONE/APAP 5/325MG 1 EACH TABLET PO PRN (14:33)
[2019-12-29 16:00] VITALS: BP 124/71
[2019-12-29] MEDS: MONTELUKAST SODIUM (10MG) 10 MG TABLET PO SCH (16:46)
[2019-12-29] MEDS: ACETAMINOPHEN 325 MG TABLET PO PRN (17:50)
[2019-12-29 20:00] VITALS: BP 133/67
[2019-12-29] MEDS: ATORVASTATIN 10 MG TABLET PO SCH (21:34)
[2019-12-29] MEDS: MIRTAZAPINE 15 MG TABLET PO SCH (21:34)
[2019-12-29] MEDS: chlorproMAZINE HCL 25 MG TABLET PO SCH (22:08)
[2019-12-30 08:00] VITALS: BP 129/78
[2019-12-30] MEDS: DIVALPROEX SODIUM 500 MG TABLET.DR PO SCH ×2 (08:24→21:05)
[2019-12-30] MEDS: NICOTINE PATCH (7MG) 7 MG PATCH.TD24 TD SCH (08:24)
[2019-12-30] MEDS: MULTIVIT W/MINERALS 1 TAB TABLET PO SCH (08:24)
[2019-12-30] MEDS: ESCITALOPRAM OXALATE (10 MG) 10 MG TABLET PO SCH (08:24)
[2019-12-30] MEDS: POLYETHYLENE GLYCOL 3350 17 GM POWD.PACK PO SCH (08:24)
[2019-12-30] MEDS: PANTOPRAZOLE 40 MG TABLET.DR PO SCH (08:24)
[2019-12-30] MEDS: LEVOTHYROXINE SODIUM 88 MCG TABLET PO SCH (08:24)
[2019-12-30] MEDS: GABAPENTIN 300 MG CAPSULE PO SCH ×3 (08:24→16:47)
[2019-12-30] MEDS: CALCIUM CARB 250MG /VITAMIN D 1 UDTAB PO SCH (08:24)
[2019-12-30] MEDS: FLUTICASONE/VILANTEROL 1 EACH BLST.W.DEV IH SCH ×2 (08:31→16:46)
--- NOTE | 2019-12-30 09:00 | NUR ---
RN NOTE- PT IN ROOM SLEEPING EASILY AROUSED. MED COMPLIANT, BEGAN TEARFUL BEHAVIOR AND ANXIOUSNESS UPON WAKING, REASSURED, COMFORTED, MEDS ADMINISTERED, NEEDS ATTENDED. DENIES SI HI VH AT THIS TIME
[2019-12-30] MEDS: LORAZEPAM 1 MG TABLET PO PRN (12:13)
--- NOTE | 2019-12-30 12:13 | NUR ---
RN NOTE- PT W ANXIETY AND TEARFULNESS. ATIVAN 1 MG GIVEN
[2019-12-30] MEDS: HYDROCODONE/APAP 5/325MG 1 EACH TABLET PO PRN (13:50)
[2019-12-30 16:00] VITALS: BP 100/64
[2019-12-30] MEDS: MONTELUKAST SODIUM (10MG) 10 MG TABLET PO SCH (16:47)
[2019-12-30 19:56] VITALS: BP 109/71
[2019-12-30] MEDS: ATORVASTATIN 10 MG TABLET PO SCH (21:06)
[2019-12-30] MEDS: MIRTAZAPINE 15 MG TABLET PO SCH (21:06)
[2019-12-30] MEDS: chlorproMAZINE HCL 25 MG TABLET PO SCH (21:38)
[2019-12-31 08:00] VITALS: BP 102/65
[2019-12-31] MEDS: FLUOXETINE HCL 20 MG CAPSULE PO SCH (08:41)
[2019-12-31] MEDS: NICOTINE PATCH (7MG) 7 MG PATCH.TD24 TD SCH (08:41)
[2019-12-31] MEDS: MULTIVIT W/MINERALS 1 TAB TABLET PO SCH (08:41)
[2019-12-31] MEDS: POLYETHYLENE GLYCOL 3350 17 GM POWD.PACK PO SCH (08:41)
[2019-12-31] MEDS: LEVOTHYROXINE SODIUM 88 MCG TABLET PO SCH (08:41)
[2019-12-31] MEDS: PANTOPRAZOLE 40 MG TABLET.DR PO SCH (08:41)
[2019-12-31] MEDS: CALCIUM CARB 250MG /VITAMIN D 1 UDTAB PO SCH (08:41)
[2019-12-31] MEDS: DIVALPROEX SODIUM 500 MG TABLET.DR PO SCH ×2 (08:41→21:09)
[2019-12-31] MEDS: GABAPENTIN 300 MG CAPSULE PO SCH ×3 (08:41→17:20)
[2019-12-31] MEDS: FLUTICASONE/VILANTEROL 1 EACH BLST.W.DEV IH SCH ×2 (08:47→17:20)
--- NOTE | 2019-12-31 09:00 | NUR ---
RN NOTE- SLEEPING. AWAKENED EASILY. BEGAN CRYING IMMEDIATELY. NERVOUS ANXIETY. TOOK HER AM RX. PO INTAKE AT BREAKFAST. PT DENIES SI HI AH VH AT PRESENT THOUGH STATES "IM TIRED OF THIS" PROVIDING SAFE THERAPEUTIC ENVIRONMENT MONITOR FOR SAFETY
[2019-12-31] MEDS: LORAZEPAM 1 MG TABLET PO PRN (12:09)
--- NOTE | 2019-12-31 12:10 | NUR ---
RN NOTE- PT CRYING AND ANXIOUS. ATIVAN 1 MG GIVEN
[2019-12-31] MEDS: chlorproMAZINE HCL 25 MG TABLET PO PRN (15:20)
--- NOTE | 2019-12-31 15:21 | NUR ---
RN NOTE- PT WITH SOBBING AND INTENSE EMOTIONAL OUTBURST. UNABLE TO CONTROL SELF OR CALM DOWN. ENCOURAGED AND ASSISTED TO ROOM AND PUT PT IN BED. THORAZINE 25 MG GIVEN.
[2019-12-31 16:00] VITALS: BP 129/72
[2019-12-31] MEDS: MONTELUKAST SODIUM (10MG) 10 MG TABLET PO SCH (17:21)
[2019-12-31] MEDS: HYDROCODONE/APAP 5/325MG 1 EACH TABLET PO PRN (17:38)
[2019-12-31 20:00] VITALS: BP 105/60
[2019-12-31] MEDS: ATORVASTATIN 10 MG TABLET PO SCH (21:10)
[2019-12-31] MEDS: MIRTAZAPINE 15 MG TABLET PO SCH (21:11)
[2019-12-31] MEDS: chlorproMAZINE HCL 25 MG TABLET PO SCH (21:11)
--- NOTE | 2020-01-01 07:24 | NUR ---
GPS RN NOTE: OPENING RECEIVED PATIENT SLEEPING IN BED WITH NO SIGNS OF DISTRESS NOTED. PATIENT BREATHING IS EVEN AND UNLABORED WITH EQUAL RISE AND FALL OF CHEST. NO OVERNIGHT BEHAVIORAL COMPLAINTS. SLEEPING FOR [address] PRECAUTIONS IN PLACE - BED IN LOW AND LOCKED POSITION WITH 2 SIDE RAILS UP FOR SAFETY. WILL CONTINUE TO MONITOR Q15 FOR MOOD, SAFETY AND BEHAVIOR.
[2020-01-01 08:00] VITALS: BP 110/65
[2020-01-01] MEDS: GABAPENTIN 300 MG CAPSULE PO SCH ×3 (08:44→17:12)
[2020-01-01] MEDS: FLUOXETINE HCL 20 MG CAPSULE PO SCH (08:44)
[2020-01-01] MEDS: PANTOPRAZOLE 40 MG TABLET.DR PO SCH (08:44)
[2020-01-01] MEDS: LEVOTHYROXINE SODIUM 88 MCG TABLET PO SCH (08:44)
[2020-01-01] MEDS: NICOTINE PATCH (7MG) 7 MG PATCH.TD24 TD SCH (08:44)
[2020-01-01] MEDS: MULTIVIT W/MINERALS 1 TAB TABLET PO SCH (08:44)
[2020-01-01] MEDS: POLYETHYLENE GLYCOL 3350 17 GM POWD.PACK PO SCH (08:44)
[2020-01-01] MEDS: FLUTICASONE/VILANTEROL 1 EACH BLST.W.DEV IH SCH ×2 (08:44→17:12)
[2020-01-01] MEDS: CALCIUM CARB 250MG /VITAMIN D 1 UDTAB PO SCH (08:44)
[2020-01-01] MEDS: DIVALPROEX SODIUM 500 MG TABLET.DR PO SCH ×2 (08:44→21:14)
[2020-01-01] MEDS: chlorproMAZINE HCL 25 MG TABLET PO PRN (11:39)
--- NOTE | 2020-01-01 11:46 | NUR ---
INDIVIDUAL INTERVENTION: SW attempted to discuss pts discharge plan to [facility]. Pt became agitated and stated, "I can't do this I just can't." Pt appears hopeless and helpless and told SW to leave the room because she did not want to talk about discharging because she is not ready. Per psychiatric note, pt is still at risk of hurting herself and is not stable for discharge.
[2020-01-01] MEDS: HYDROCODONE/APAP 5/325MG 1 EACH TABLET PO PRN ×2 (13:40→20:08)
[2020-01-01 16:00] VITALS: BP 108/65
[2020-01-01] MEDS: MONTELUKAST SODIUM (10MG) 10 MG TABLET PO SCH (17:12)
[2020-01-01] MEDS: ACETAMINOPHEN 325 MG TABLET PO PRN (18:54)
[2020-01-01 20:06] VITALS: BP 124/68
[2020-01-01] MEDS: MIRTAZAPINE 15 MG TABLET PO SCH (21:14)
[2020-01-01] MEDS: chlorproMAZINE HCL 25 MG TABLET PO SCH (21:15)
[2020-01-01] MEDS: ATORVASTATIN 10 MG TABLET PO SCH (21:17)
[2020-01-02 08:00] VITALS: BP 111/80
[2020-01-02] MEDS: PANTOPRAZOLE 40 MG TABLET.DR PO SCH (08:49)
[2020-01-02] MEDS: MULTIVIT W/MINERALS 1 TAB TABLET PO SCH (08:49)
[2020-01-02] MEDS: GABAPENTIN 300 MG CAPSULE PO SCH (08:50)
[2020-01-02] MEDS: POLYETHYLENE GLYCOL 3350 17 GM POWD.PACK PO SCH (08:50)
[2020-01-02] MEDS: CALCIUM CARB 250MG /VITAMIN D 1 UDTAB PO SCH (08:50)
[2020-01-02] MEDS: DIVALPROEX SODIUM 500 MG TABLET.DR PO SCH ×2 (08:50→20:40)
[2020-01-02] MEDS: FLUOXETINE HCL 20 MG CAPSULE PO SCH (08:51)
[2020-01-02] MEDS: NICOTINE PATCH (7MG) 7 MG PATCH.TD24 TD SCH (08:51)
[2020-01-02] MEDS: LEVOTHYROXINE SODIUM 88 MCG TABLET PO SCH (08:51)
[2020-01-02] MEDS: FLUTICASONE/VILANTEROL 1 EACH BLST.W.DEV IH SCH ×2 (08:55→16:49)
[2020-01-02] MEDS: LORAZEPAM 1 MG TABLET PO PRN (09:21)
--- NOTE | 2020-01-02 09:22 | NUR ---
GPS RN NOTE: PATIENT CRYING/SOBBING, UNABLE TO CONTROL EMOTION. VERBALIZING SI. "I'M SORRY I CAN'T DO THIS ANYMORE". PATIENT REQUESTED ATIVAN. ADMINISTERED ORDERED. WILL CONTINUE TO MONITOR
[2020-01-02] MEDS: ACETAMINOPHEN 325 MG TABLET PO PRN ×2 (12:00→18:00)
[2020-01-02] MEDS: HYDROCODONE/APAP 5/325MG 1 EACH TABLET PO PRN ×2 (12:39→19:01)
--- NOTE | 2020-01-02 14:53 | NUR ---
INDIVIDUAL INTERVENTION: SW met with pt at bedside and discussed pts symptoms of depression/anxiety evident in her increased tearfulness and withdrawing/isolating in her room. Pt states that she does not want to go out in the activity room because everyone is "crazy." She states that she rather stay in her room and read. SW discussed the importance of engaging in conversation with others and also participating in activities. SW addressed pts frantic and anxious mood and pt began crying stating that she does not know why she has been feeling so anxious and tearful. She states that she asked the MD to discontinue the Neurontin and she states its made her feel a little bit better not being on it anymore. SW provided her with coping tools and encouraged pt to get up from bed and have breakfast, lunch, and dinner in the activity room. SW also encouraged pt to spend more time engaging in activities such as puzzles, coloring, and requesting to read her book outside in the balcony. Pt agreed and said she would start doing that. OTILIA also discussed short term placement at a SNF. Pt refused stating that she does not want to be discharged to a SNF and wants to return home where she lives alone. OTILIA will discuss discharge plan with pt and daughter.
--- NOTE | 2020-01-02 15:22 | NUR ---
FAMILY CONTACT: OTILIA called the pts daughter, Joan ([phone]) to provide her with an update. SW left a voicemail informing her that pt continues to be withdraw and isolative and anxious. OTILIA stated that MD has made medication changes and also informed her that pt is refusing SNF placement. OTILIA requested a callback.
[2020-01-02] MEDS: hydrOXYzine PAMOATE 25 MG CAPSULE PO PRN (15:24)
[2020-01-02 16:00] VITALS: BP 112/79
[2020-01-02] MEDS: MONTELUKAST SODIUM (10MG) 10 MG TABLET PO SCH (16:49)
--- NOTE | 2020-01-02 17:33 | NUR ---
gps rn note: back pain hot pack given to patient for back pain. outside window for pain medication. pain 03/08 Addendum: 01/02/20 at 1802 by RADHA AYALA RN acetaminophen 650mg administered as ordered for pain in back and headache 03/08
[2020-01-02 20:24] VITALS: BP 110/60
[2020-01-02] MEDS: MIRTAZAPINE 15 MG TABLET PO SCH (21:11)
[2020-01-02] MEDS: chlorproMAZINE HCL 25 MG TABLET PO SCH (21:11)
[2020-01-02] MEDS: ATORVASTATIN 10 MG TABLET PO SCH (21:12)
[2020-01-03 08:00] VITALS: BP 100/60
[2020-01-03] MEDS: PANTOPRAZOLE 40 MG TABLET.DR PO SCH (08:34)
[2020-01-03] MEDS: NICOTINE PATCH (7MG) 7 MG PATCH.TD24 TD SCH (08:34)
[2020-01-03] MEDS: MULTIVIT W/MINERALS 1 TAB TABLET PO SCH (08:34)
[2020-01-03] MEDS: LEVOTHYROXINE SODIUM 88 MCG TABLET PO SCH (08:34)
[2020-01-03] MEDS: FLUOXETINE HCL 20 MG CAPSULE PO SCH (08:34)
[2020-01-03] MEDS: CALCIUM CARB 250MG /VITAMIN D 1 UDTAB PO SCH (08:34)
[2020-01-03] MEDS: POLYETHYLENE GLYCOL 3350 17 GM POWD.PACK PO SCH (08:34)
[2020-01-03] MEDS: DIVALPROEX SODIUM 500 MG TABLET.DR PO SCH ×2 (08:34→21:01)
[2020-01-03] MEDS: FLUTICASONE/VILANTEROL 1 EACH BLST.W.DEV IH SCH ×2 (08:34→17:02)
[2020-01-03] MEDS: hydrOXYzine PAMOATE 25 MG CAPSULE PO PRN (08:48)
[2020-01-03] MEDS: ACETAMINOPHEN 325 MG TABLET PO PRN ×2 (10:00→19:58)
[2020-01-03] MEDS: HYDROCODONE/APAP 5/325MG 1 EACH TABLET PO PRN ×2 (11:35→17:53)
[2020-01-03 16:00] VITALS: BP 102/65
[2020-01-03] MEDS: MONTELUKAST SODIUM (10MG) 10 MG TABLET PO SCH (17:01)
[2020-01-03 20:31] VITALS: BP 130/72
[2020-01-03] MEDS: MIRTAZAPINE 15 MG TABLET PO SCH (21:02)
[2020-01-03] MEDS: ATORVASTATIN 10 MG TABLET PO SCH (21:02)
[2020-01-03] MEDS: chlorproMAZINE HCL 25 MG TABLET PO SCH (21:02)
[2020-01-04 08:00] VITALS: BP 119/75
[2020-01-04] MEDS: PANTOPRAZOLE 40 MG TABLET.DR PO SCH (08:23)
[2020-01-04] MEDS: POLYETHYLENE GLYCOL 3350 17 GM POWD.PACK PO SCH (08:23)
[2020-01-04] MEDS: FLUOXETINE HCL 20 MG CAPSULE PO SCH (08:23)
[2020-01-04] MEDS: LEVOTHYROXINE SODIUM 88 MCG TABLET PO SCH (08:23)
[2020-01-04] MEDS: CALCIUM CARB 250MG /VITAMIN D 1 UDTAB PO SCH (08:23)
[2020-01-04] MEDS: LORAZEPAM 1 MG TABLET PO PRN (08:23)
[2020-01-04] MEDS: DIVALPROEX SODIUM 500 MG TABLET.DR PO SCH ×2 (08:23→21:22)
[2020-01-04] MEDS: NICOTINE PATCH (21MG) 21 MG PATCH.TD24 TD SCH (08:23)
[2020-01-04] MEDS: MULTIVIT W/MINERALS 1 TAB TABLET PO SCH (08:23)
--- NOTE | 2020-01-04 08:23 | NUR ---
RN NOTE:PATIENT C/O ANXIETY MEDICATED WITH ATIVAN 1 MG PO FOR ANXIETY.WILL CONTINUE TO MONITOR .
[2020-01-04] MEDS: FLUTICASONE/VILANTEROL 1 EACH BLST.W.DEV IH SCH ×2 (08:26→17:27)
[2020-01-04] MEDS: ACETAMINOPHEN 325 MG TABLET PO PRN ×3 (10:32→21:00)
--- NOTE | 2020-01-04 10:34 | NUR ---
RN NOTE :Patient c/o headache and medicated with Tylenol 650mg will continue to monitor .
[2020-01-04] MEDS: HYDROCODONE/APAP 5/325MG 1 EACH TABLET PO PRN ×2 (11:53→18:17)
--- NOTE | 2020-01-04 11:53 | NUR ---
RN NOTE :Patient c/o headache and medicated with Tylenol 650mg will continue to monitor . Addendum: 01/04/20 at 1731 by KRISTEN VILLAR RN NOTE :Patient c/o headache and medicated with [place] will continue to monitor .
--- NOTE | 2020-01-04 12:31 | NUR ---
Family Contact: SW called the pts daughter, Joan ([phone]), and stated that the pt is refusing SNF placement. She stated that she does not feel that the pt can return to her home because it is not safe. Pts daughter stated that the pt has been refusing placement for 10 years. SW recommended that she can work on becoming the pts DPOA and she stated that she was. OTILIA asked her to send over the paperwork so it can be reviewed before we place the pt in the SNF.
[2020-01-04 16:00] VITALS: BP 105/66
[2020-01-04] MEDS: MONTELUKAST SODIUM (10MG) 10 MG TABLET PO SCH (17:27)
--- NOTE | 2020-01-04 17:29 | NUR ---
SILVIO NOTE :Patient c/o headache and medicated with Tylenol 650mg will continue to monitor . Addendum: 01/04/20 at 1745 by KRISTEN VILLAR patient refused Tylenol 650mg.
--- NOTE | 2020-01-04 18:18 | NUR ---
RN NOTE :Patient c/o headache and medicated with [place] 5mg /325mg will continue to monitor .
--- NOTE | 2020-01-04 19:30 | NUR ---
GPS RN NOTE, RECEIVED PATIENT AWAKE AND IN BED, PATIENT HAS A COMPLAINT OF LOWER BACK PAIN AT 3 OUT 10 ON THE PAIN SCALE. PATIENT IS RECEIVING ORAL PAIN MEDICATION FOR THIS PAIN. PATIENT IS DISPLAYING NO S/S OF APPARENT DISTRESS AT THIS TIME. PATIENT BREATHING IS UNLABORED WITH EQUAL RISE AND FALL OF THE CHEST. PATIENT IS ALERT AND ORIENTED X 3 ON ROOM AIR WITH A SPO2 97 %. PATIENT IS COMPLIANT WITH MEDICATION, DISORGANIZED, DEPRESSED, CRYING AT TIMES, AND COOPERATIVE. PATIENT DENIES SUICIDE IDEATIONS AND HOMICIDAL IDEATIONS AT THIS TIME. PATIENT ASSISTED WITH TURNING AND REPOSITIONING Q2HR AND PRN FOR COMFORT AND CIRCULATION. PATIENT HAS NO NEEDS AT THIS TIME. PATIENT EDUCATED ON THE USE OF THE CALL GARCIA. PATIENT BED SIDE RAILS UP X 2 FOR SAFETY, BED IS LOCKED, AND LOW. WILL CONTINUE TO MONITOR Q15MIN WITH THE HELP OF STAFF TO MAINTAIN SAFETY.
[2020-01-04 20:19] VITALS: BP 135/75
--- NOTE | 2020-01-04 21:00 | NUR ---
GPS RN NOTE, PATIENT HAS A COMPLAINT OF A HEADACHE AT 3 OUT 10 ON THE PAIN SCALE AND IS REQUESTING TYLENOL AT THIS TIME. PATIENT VITAL SIGNS ARE STABLE. GAVE TYLENOL 650 MG PO Q6HR PRN ORDERED WILL REASSESS PAIN AND I WILL CONTINUE TO MONITOR THIS PATIENT.
[2020-01-04] MEDS: MIRTAZAPINE 15 MG TABLET PO SCH (21:22)
[2020-01-04] MEDS: chlorproMAZINE HCL 25 MG TABLET PO SCH (21:22)
[2020-01-04] MEDS: ATORVASTATIN 10 MG TABLET PO SCH (21:22)
[2020-01-05] MEDS: NICOTINE PATCH (21MG) 21 MG PATCH.TD24 TD SCH (08:37)
[2020-01-05] MEDS: DIVALPROEX SODIUM 500 MG TABLET.DR PO SCH ×2 (08:37→21:13)
[2020-01-05] MEDS: POLYETHYLENE GLYCOL 3350 17 GM POWD.PACK PO SCH (08:37)
[2020-01-05] MEDS: CALCIUM CARB 250MG /VITAMIN D 1 UDTAB PO SCH (08:38)
[2020-01-05] MEDS: PANTOPRAZOLE 40 MG TABLET.DR PO SCH (08:38)
[2020-01-05] MEDS: FLUOXETINE HCL 20 MG CAPSULE PO SCH (08:38)
[2020-01-05] MEDS: LEVOTHYROXINE SODIUM 88 MCG TABLET PO SCH (08:38)
[2020-01-05] MEDS: MULTIVIT W/MINERALS 1 TAB TABLET PO SCH (08:38)
[2020-01-05] MEDS: FLUTICASONE/VILANTEROL 1 EACH BLST.W.DEV IH SCH ×2 (09:00→16:25)
--- NOTE | 2020-01-05 09:00 | NUR ---
RN NOTE-RN NOTE- PT IN BED AWAKENS EASILY ALERT ORIENTED PERSON PLACE ONLY, CONFUSED MED COMPLIANT TEARFUL THOUGH SEEMS A BIT BETTER THAN SEVERAL DAYS AGO DURING INTERACTION W THIS RN. DENIES SI HI VH. STATES SHE ISNT THINKING ABOUT SI
[2020-01-05] MEDS: chlorproMAZINE HCL 25 MG TABLET PO PRN (09:26)
--- NOTE | 2020-01-05 09:27 | NUR ---
RN NOTE- AGITATION/ PT TEARFUL ANXIOUS REQUESTING PRN. THORAZINE 25MG GIVEN
[2020-01-05] MEDS: HYDROCODONE/APAP 5/325MG 1 EACH TABLET PO PRN ×2 (10:33→19:48)
[2020-01-05] MEDS: chlorproMAZINE HCL 25 MG TABLET PO SCH ×3 (12:01→21:14)
--- NOTE | 2020-01-05 12:15 | NUR ---
INDIVIDUAL INTERVENTION: SW met with pt at bedside and discussed pts symptoms of depression/anxiety evident in her increased tearfulness and withdrawing/isolating in her room. Pt is crying in her room saying she does not feel good, when asked by SW what she was feeling pt responded with "I don't know I don't know." Pt was grabbing her head and crying hysterically. SW encouraged pt to get up from bed and go into the activity room. Pt followed SW to the activity room and began crying stating, "I just can't do this I want to go home I can take care of myself. I just want to sleep I haven't slept" Pt is disorganized and unable to come up with a plan for safety is she where to return home. Pt states that she has been reading and walking around the unit, however, SW stated that even tho walking and reading are good for her these isolative activities are not therapeutic for her recovery. SW stated that pt has not shown improvement with her recovery and explained that she cannot solely rely on medication to help her feel better, SW stated that she needs to put in an effort to come out of her room and engage in activities that will help ease her negative thoughts. Pt became agitated and yelled saying she was not going to go to a SNF and wanted to be discharged home. Pt walked away from SW and went into her room. Pt has limited insight into her mental illness and unable to engage in a therapeutic intervention with SW as pt continued to cry then became agitated.
--- NOTE | 2020-01-05 12:38 | NUR ---
FAMILY CONTACT: OTILIA called the pts daughterJoan ([phone]) to provide her with an update. OTILIA left a voicemail informing her that pt continues to be withdraw and isolative and anxious. OTILIA stated that MD has made medication changes and also informed her that pt is refusing SNF placement. OTILIA stated that pt was placed on Voluntary admissions and that she is no longer on a hold which meant that pt is able to leave is she wished to. OTILIA requested daughter fax DPOA paperwork. OTILIA requested a callback to discuss an appropriate discharge plan.
--- NOTE | 2020-01-05 12:40 | NUR ---
FAMILY CONTACT: OTILIA received a call from pts mother, Nerissa ([phone]) stating that she refused for pt to be discharged to a SNF. OTILIA informed her that pts daughter Joan informed SW that discharging pt home is not a safe plan as pt is unable to care for herself. OTILIA informed pts mother that per daughter she is pts DPOA and pts mother confirmed. OTILIA provided pts mother with an update on pts current behaviors and informed her that pt is on voluntary admission. OTILIA suggested she and pts daughter discuss an appropriate discharge plan for pt and also suggested that if pt discharges home she come pick pt up and transport her home. Mother stated that she would be willing to do that. OTILIA will continue to help form a safe and proper discharge plan in collaboration with MD and pts family.
[2020-01-05 16:10] VITALS: BP 124/75
[2020-01-05] MEDS: LORAZEPAM 1 MG TABLET PO PRN (16:14)
--- NOTE | 2020-01-05 16:15 | NUR ---
RN NOTE- AGITATION/ PT ANXIOUS. ATIVAN 1 MG GIVEN
[2020-01-05] MEDS: MONTELUKAST SODIUM (10MG) 10 MG TABLET PO SCH (16:26)
--- NOTE | 2020-01-05 19:30 | NUR ---
GPS RN NOTE, RECEIVED PATIENT AWAKE AND IN BED, PATIENT HAS A COMPLAINT OF LOWER BACK PAIN AT 5 OUT 10 ON THE PAIN SCALE. PATIENT IS RECEIVING ORAL PAIN MEDICATION FOR THIS PAIN. PATIENT IS DISPLAYING NO S/S OF APPARENT DISTRESS AT THIS TIME. PATIENT BREATHING IS UNLABORED WITH EQUAL RISE AND FALL OF THE CHEST. PATIENT IS ALERT AND ORIENTED X 3 ON ROOM AIR WITH A SPO2 95 %. PATIENT IS COMPLIANT WITH MEDICATION, DISORGANIZED, DEPRESSED, CRYING AT TIMES, AND COOPERATIVE. PATIENT DENIES SUICIDE IDEATIONS AND HOMICIDAL IDEATIONS AT THIS TIME. PATIENT ASSISTED WITH TURNING AND REPOSITIONING Q2HR AND PRN FOR COMFORT AND CIRCULATION. PATIENT HAS NO NEEDS AT THIS TIME. PATIENT EDUCATED ON THE USE OF THE CALL GARCIA. PATIENT BED SIDE RAILS UP X 2 FOR SAFETY, BED IS LOCKED, AND LOW. WILL CONTINUE TO MONITOR Q15MIN WITH THE HELP OF STAFF TO MAINTAIN SAFETY.
--- NOTE | 2020-01-05 19:48 | NUR ---
GPS RN NOTE, PATIENT HAS A COMPLAINT OF LOWER BACK PAIN AT 6 OUT 10 ON THE PAIN SCALE AND IS REQUESTING NORCO AT THIS TIME. PATIENT VITAL SIGNS ARE STABLE. GAVE NORCO 5 - 325 1 TAB PO Q6HR PRN ORDERED. WILL REASSESS FOR PAIN AND I WILL CONTINUE TO MONITOR THIS PATIENT.
[2020-01-05 20:00] VITALS: BP 106/71
[2020-01-05] MEDS: ATORVASTATIN 10 MG TABLET PO SCH (21:13)
[2020-01-05] MEDS: MIRTAZAPINE 15 MG TABLET PO SCH (21:14)
--- NOTE | 2020-01-05 23:23 | NUR ---
GPS RN NOTE, PATIENT HAS COMPLAINT OF NOT BEING ABLE TO SLEEP AND IS REQUESTING AMBIEN AT THIS TIME. PAGED DR TENORIO AND INFORMED HIM OF MY FINDING. DR TENORIO ORDERED TO GIVE AMBIEN 10 MG PO ONCE. ALL ORDERS NOTED AND CARRIED OUT WILL CONTINUE TO MONITOR THIS PATIENT.
[2020-01-05] MEDS ORDERED: ZOLPIDEM TARTRATE 10 MG TABLET PO ONE (23:30)
--- NOTE | 2020-01-05 23:41 | NUR ---
GPS RN NOTE, PATIENT HAS A COMPLAINT OF HAVING INSOMNIA AND IS REQUESTING AMBIEN AT THIS TIME. PATIENT VITAL SIGNS ARE STABLE. GAVE AMBIEN 10 MG PO ONCE PRN ORDERED. WILL REASSESS FOR INSOMNIA AND I WILL CONTINUE TO MONITOR THIS PATIENT.
[2020-01-06 08:00] VITALS: BP 111/68
[2020-01-06] MEDS: NICOTINE PATCH (21MG) 21 MG PATCH.TD24 TD SCH (09:01)
[2020-01-06] MEDS: FLUTICASONE/VILANTEROL 1 EACH BLST.W.DEV IH SCH ×2 (09:01→16:06)
[2020-01-06] MEDS: MULTIVIT W/MINERALS 1 TAB TABLET PO SCH (09:01)
[2020-01-06] MEDS: FLUOXETINE HCL 20 MG CAPSULE PO SCH (09:02)
[2020-01-06] MEDS: DIVALPROEX SODIUM 500 MG TABLET.DR PO SCH ×2 (09:02→21:36)
[2020-01-06] MEDS: LEVOTHYROXINE SODIUM 88 MCG TABLET PO SCH (09:02)
[2020-01-06] MEDS: chlorproMAZINE HCL 25 MG TABLET PO SCH ×4 (09:02→21:36)
[2020-01-06] MEDS: CALCIUM CARB 250MG /VITAMIN D 1 UDTAB PO SCH (09:02)
[2020-01-06] MEDS: PANTOPRAZOLE 40 MG TABLET.DR PO SCH (09:03)
[2020-01-06] MEDS: POLYETHYLENE GLYCOL 3350 17 GM POWD.PACK PO SCH (09:03)
[2020-01-06] MEDS: HYDROCODONE/APAP 5/325MG 1 EACH TABLET PO PRN ×2 (09:46→17:30)
[2020-01-06] MEDS: LORAZEPAM 1 MG TABLET PO PRN (12:11)
--- NOTE | 2020-01-06 12:12 | NUR ---
GPS RN NOTE: ANXIETY PATIENT C/O ANXIETY AND "THE SHAKES". REQUESTED ATIVAN. ADMINISTERED ORDERED. WILL CONTINUE TO MONITOR
[2020-01-06] MEDS: ACETAMINOPHEN 325 MG TABLET PO PRN (15:55)
[2020-01-06 16:00] VITALS: BP 109/67
[2020-01-06] MEDS: MONTELUKAST SODIUM (10MG) 10 MG TABLET PO SCH (16:06)
[2020-01-06] MEDS: MAGNESIUM HYDROXIDE 30 ML UDC PO PRN (16:38)
[2020-01-06 20:00] VITALS: BP 137/69
[2020-01-06] MEDS: MIRTAZAPINE 15 MG TABLET PO SCH (21:36)
[2020-01-06] MEDS: ATORVASTATIN 10 MG TABLET PO SCH (21:37)
--- NOTE | 2020-01-06 22:35 | NUR ---
GPS RN NOTE: INSOMNIA PT. C/O UNABLE TO SLEEP AND REQUESTED SLEEPING PILL. ADMINISTERED AMBIEN 10 MG PO PRN ORDERED. WILL CONTINUE TO MONITOR FOR SAFETY AND BEHAVIOR
[2020-01-06] MEDS: ZOLPIDEM TARTRATE 10 MG TABLET PO PRN (22:39)
[2020-01-07 08:00] VITALS: BP 113/68
[2020-01-07] MEDS: FLUTICASONE/VILANTEROL 1 EACH BLST.W.DEV IH SCH ×2 (08:32→16:21)
[2020-01-07] MEDS: PANTOPRAZOLE 40 MG TABLET.DR PO SCH (08:58)
[2020-01-07] MEDS: chlorproMAZINE HCL 25 MG TABLET PO SCH ×4 (08:58→21:18)
[2020-01-07] MEDS: CALCIUM CARB 250MG /VITAMIN D 1 UDTAB PO SCH (08:58)
[2020-01-07] MEDS: POLYETHYLENE GLYCOL 3350 17 GM POWD.PACK PO SCH (08:58)
[2020-01-07] MEDS: MULTIVIT W/MINERALS 1 TAB TABLET PO SCH (08:58)
[2020-01-07] MEDS: FLUOXETINE HCL 20 MG CAPSULE PO SCH (08:58)
[2020-01-07] MEDS: DIVALPROEX SODIUM 500 MG TABLET.DR PO SCH ×2 (08:58→21:17)
[2020-01-07] MEDS: LEVOTHYROXINE SODIUM 88 MCG TABLET PO SCH (08:58)
[2020-01-07] MEDS: NICOTINE PATCH (21MG) 21 MG PATCH.TD24 TD SCH (08:58)
[2020-01-07] MEDS: LORAZEPAM 1 MG TABLET PO PRN (10:04)
--- NOTE | 2020-01-07 11:08 | NUR ---
RN-CO: ATIVAN 1 MG PO GIVEN FOR SEVERE ANXIETY AND CRYING AND SHE IS SCARED TO GO TO [facility].
[2020-01-07] MEDS: HYDROCODONE/APAP 5/325MG 1 EACH TABLET PO PRN ×2 (11:58→17:29)
[2020-01-07 16:00] VITALS: BP 107/66
[2020-01-07] MEDS: MONTELUKAST SODIUM (10MG) 10 MG TABLET PO SCH (16:17)
[2020-01-07] MEDS: MAGNESIUM HYDROXIDE 30 ML UDC PO PRN (18:42)
--- NOTE | 2020-01-07 18:43 | NUR ---
GPS/RN-NOTES PATIENT C/O CONSTIPATION AND REQUESTING FOR MOM,MOM 30ML GIVEN PRN ORDER. WILL ENDORSE TO INCOMING NURSE FOR CONTINUITY OF CARE.
[2020-01-07 20:39] VITALS: BP 114/74
[2020-01-07] MEDS: MIRTAZAPINE 15 MG TABLET PO SCH (21:18)
[2020-01-07] MEDS: ATORVASTATIN 10 MG TABLET PO SCH (21:20)
[2020-01-07] MEDS: ZOLPIDEM TARTRATE 10 MG TABLET PO PRN (22:20)
--- NOTE | 2020-01-07 22:20 | NUR ---
GPS RN NOTE: INSOMNIA PT. C/O UNABLE TO SLEEP AND REQUESTED SLEEPING PILL. ADMINISTERED AMBIEN 10 MG PO PRN ORDERED. WILL CONTINUE TO MONITOR.
[2020-01-08 08:00] VITALS: BP 105/72
[2020-01-08] MEDS: FLUOXETINE HCL 20 MG CAPSULE PO SCH (08:53)
[2020-01-08] MEDS: chlorproMAZINE HCL 25 MG TABLET PO SCH ×2 (08:53→13:00)
[2020-01-08] MEDS: MULTIVIT W/MINERALS 1 TAB TABLET PO SCH (08:53)
[2020-01-08] MEDS: PANTOPRAZOLE 40 MG TABLET.DR PO SCH (08:53)
[2020-01-08] MEDS: CALCIUM CARB 250MG /VITAMIN D 1 UDTAB PO SCH (08:53)
[2020-01-08] MEDS: LEVOTHYROXINE SODIUM 88 MCG TABLET PO SCH (08:53)
[2020-01-08] MEDS: POLYETHYLENE GLYCOL 3350 17 GM POWD.PACK PO SCH (08:53)
[2020-01-08] MEDS: NICOTINE PATCH (21MG) 21 MG PATCH.TD24 TD SCH (08:53)
[2020-01-08] MEDS: DIVALPROEX SODIUM 500 MG TABLET.DR PO SCH (08:54)
[2020-01-08] MEDS: FLUTICASONE/VILANTEROL 1 EACH BLST.W.DEV IH SCH (08:58)
[2020-01-08] MEDS: LORAZEPAM 1 MG TABLET PO PRN (09:15)
--- NOTE | 2020-01-08 09:15 | NUR ---
RN NOTE:PATIENT C/O ANXIETY MEDICATED WITH ATIVAN 1 MG PO FOR ANXIETY.WILL CONTINUE TO MONITOR .
--- NOTE | 2020-01-08 09:25 | NUR ---
Family Contact: SW called the pts daughter, Joan ([phone]), and left a voicemail stating that the pt has a discharge order for today and that the SW needs the DPOA paperwork that she states she has before she can send the pt to the SNF as the pt is currently refusing. OTILIA stated that if the paperwork is not received today, the SW will not have any other choice other than to send the pt home.
--- NOTE | 2020-01-08 09:50 | NUR ---
Family Contact: SW called the pts daughter, Joan ([phone]), once agin and the line went straight to voicemail.
--- NOTE | 2020-01-08 10:17 | NUR ---
Family Contact: SW called the pts mother, Nerissa ([phone]), and informed her that the SW is having a difficult time contacting the pts daughter and receiving the DPOA paperwork that will allow the SW to send the pt to a SNF. OTILIA stated that if that paperwork is not reviewed today then the SW will have to discharge the pt back to her home. SW stated that there is likely no mode of transportation that can be arranged for today on such short notice also due to COVID. OTILIA stated that if the pt returns to her home then the SW will need her to pick her up and she stated that would be possible only if the pt agrees.
--- NOTE | 2020-01-08 10:42 | NUR ---
Individual Intervention: SW spoke to the pt and informed her that the SW spoke to her mother who stated that she would be willing to seed cone picker the pt and take her home. SW had expressed to her that transporting her on short notice during COVID would be difficult so the pts mother agreed. When the SW talked to the pt about that plan she began to cry hysterically and stated, "I do not want my mom to come pick me up. I want to go home but I love my family and that is too much for them to do. They take care of me too much." SW stated that the only other option would be for the pt to go to the nursing facility where she will be able to receive her medications and stabilize further. SW stated that there are activities that she can partake in there including smoking. SW informed her that from the nursing facility the pt can return to her home. Pt stated that she agrees to go to the nursing facility.
[2020-01-08] MEDS: hydrOXYzine PAMOATE 25 MG CAPSULE PO PRN (10:47)
--- NOTE | 2020-01-08 10:53 | NUR ---
Facility Contact: OTILIA informed Stella ([phone]), admissions clinician for [facility], that the pt will be discharged to her facility today. OTILIA faxed the pts medications, COVID result, and vitals to the fax number: [phone].
--- NOTE | 2020-01-08 11:00 | NUR ---
Family Contact: SW called the pts mother, Nerissa ([phone]), and informed her that the pt had agreed to go to the nursing facility and therefore the SW will be sending her there for her discharge plan.
[2020-01-08] MEDS: ACETAMINOPHEN 325 MG TABLET PO PRN (13:00)
--- NOTE | 2020-01-08 15:23 | NUR ---
Family Contact: SW called the pts daughter, Joan ([phone]), and left a voicemail stating the name of the facility, the address and the phone number.
--- NOTE | 2020-01-08 15:30 | NUR ---
SAS STATISTICAL PROGRAMMER NOTE :PATIENT ALERT ,VERBALLY RESPONSIVE DENIES SI/HI/AVH .MED COMPLIANT ,NO C/O PAIN AT THIS TIME ,PATIENT SEEN BY AND DR. COVINGTON WITH DISCHARGE ORDERS .ALL BELONGINGS RETURNED TO PATIENT .REPORT GIVEN TO IVAN ANGUIANO IN [facility] .PATIENT DISCHARGE WITH SPA EXPERIENCE COORDINATOR AT 1530 .
--- NOTE | 2020-01-08 16:19 | NUR ---
Discharge Note: Pt was discharged to [facility] ([facility]) located at [address] [place] [id number]; ([phone]). Pt was transported via the facility pickup around 3pm. Pts mother, Nerissa ), has been informed and a voicemail was left for the pts daughter. Upon discharge, the pt appeared to be in a depressed mood and presented with a distressed and anxious affect. Pt was alert and oriented x4 (time, place, self and situation). Pt denied both suicidal and homicidal ideation as well as auditory and visual hallucinations. Pt will be under the care of her psychiatrist, Dr. Saleem, located at [address] [place] [address]; and instrument and electrical technician, Dr. Looney, located at [address] [place] [address] [address], [place] [address]; . Pt signed the Choice of Vendor. Pt was also provided with smoking cessation referrals.
== END 2020-01-08 15:30 | DRG 881 ==
LOC: GPS 13:30
PROVIDERS: ADMIT Psychiatry & Neurology Psychiatry; ATTEND Family Medicine
DX: F32.9 Major depressive disorder, single episode, unspecified (principal); R45.851 Suicidal ideations; F41.9 Anxiety disorder, unspecified; E78.5 Hyperlipidemia, unspecified; E03.9 Hypothyroidism, unspecified; J44.9 Chronic obstructive pulmonary disease, unspecified; G89.29 Other chronic pain; Z98.890 Other specified postprocedural states; Z72.0 Tobacco use; Z79.899 Other long term (current) drug therapy
CPT/HCPCS: 36415; 80053-TC; 80061-TC; 80164-TC; 82962-TC; Q0161; Q0177

== ENCOUNTER 2023-08-04 20:59 | Inpatient (IN) | payer MEDICARE, OTHER ==
[~2023-08-04] VITALS: Ht 160 cm; Wt 54.4 kg
[~2023-08-04 20:59] MED LIST changes: -ACET-2605 PO; +ACET-868 PO; -ALBU18HF2 IH; +CALC-7 PO; +HYDR-3972 PO; -IPRA3AMP23 IH; -LEVO112T7 PO; +LEVO88TA5 PO; +MULT-659 PO; +NALO25TA PO; -PANT20TA3 PO; +PANT40TA49 PO; +POLY17PO4 PO; -TIZA4TAB5 PO
[2023-08-04] MEDS ORDERED: HYDROCODONE/APAP 5/325MG TABLET PO PRN (21:00)
[2023-08-04] MEDS ORDERED: ACETAMINOPHEN 325 MG TABLET PO PRN (21:00)
[2023-08-04] MEDS ORDERED: BLOOD SUGAR DIAGNOSTIC 1 EACH STRIP IN ONE (21:30)
[2023-08-04] MEDS ORDERED: MAG HYDROX/AL HYDROX/SIMETH 30 ML UDC PO PRN (21:30)
[2023-08-04] MEDS ORDERED: MAGNESIUM HYDROXIDE 30 ML UDC PO PRN (21:30)
[2023-08-04] MEDS ORDERED: TEMAZEPAM 7.5 MG CAPSULE PO PRN (21:30)
[2023-08-04 21:55] VITALS: BP 113/76; TEMP 98.4; O2SAT 99
[2023-08-04] MEDS: LORAZEPAM 0.5 MG TABLET PO PRN (22:02)
[2023-08-04] MEDS: ATORVASTATIN 10 MG TABLET PO SCH (22:08)
[2023-08-05] MEDS ORDERED: FLUTICASONE/VILANTEROL 1 EACH BLST.W.DEV IH SCH (07:05)
[2023-08-05 07:48] LABS: CHOLESTEROL 130 mg/dL (<200); HDL CHOLESTEROL 31 mg/dL (40-60); LDL 79 mg/dL (0-99); TRIGLYCERIDES 144 mg/dL (30-150)
[2023-08-05 07:49] LABS: BILIRUBIN,TOTAL 0.4 mg/dL (0.2-1.0); CALCIUM, SERUM 9.3 mg/dL (8.5-10.1); CREATININE 0.7 mg/dL (0.6-1.3); POTASSIUM 3.6 mmol/L (3.5-5.1)
[2023-08-05] MEDS: LEVOTHYROXINE SODIUM 88 MCG TABLET PO SCH (07:59)
[2023-08-05] MEDS: PANTOPRAZOLE 40 MG TABLET.DR PO SCH (07:59)
[2023-08-05 08:00] VITALS: BP 99/64; TEMP 97.8; O2SAT 100
[2023-08-05] MEDS: POLYETHYLENE GLYCOL 3350 17 GM POWD.PACK PO SCH (08:53)
[2023-08-05] MEDS: CALCIUM CARB 250MG /VITAMIN D 1 UDTAB PO SCH (08:56)
[2023-08-05] MEDS: MULTIVIT W/MINERALS 1 TAB TABLET PO SCH (08:56)
[2023-08-05] MEDS: MONTELUKAST SODIUM (10MG) 10 MG TABLET PO SCH (08:56)
[2023-08-05] MEDS ORDERED: BUPR1FIL3 SL (10:49)
[2023-08-05] MEDS: LORAZEPAM 0.5 MG TABLET PO PRN ×2 (10:58→17:25)
[2023-08-05] MEDS: NICOTINE PATCH (7MG) 7 MG PATCH.TD24 TD SCH (11:09)
[2023-08-05] MEDS: NALOXONE SL SCH ×2 (14:22→18:24)
[2023-08-05] MEDS: BUPRENORPHINE SL SCH ×2 (14:22→18:24)
[2023-08-05] MEDS ORDERED: KEY,NONCONTROL,TO KEEP IN PYXI 1 EA MC ONE (14:27)
[2023-08-05 16:00] VITALS: BP 100/67; TEMP 97.9; O2SAT 98
[2023-08-05] MEDS: OXCARBAZEPINE 150 MG TABLET PO SCH (16:59)
[2023-08-05] MEDS: FLUTICASONE/VILANTEROL 1 EACH BLST.W.DEV IH SCH (16:59)
[2023-08-05 20:00] VITALS: BP 98/52; TEMP 97.6; O2SAT 97
[2023-08-05] MEDS: ATORVASTATIN 10 MG TABLET PO SCH (21:34)
[2023-08-05] MEDS ORDERED: OLANZAPINE 2.5 MG TABLET PO SCH (22:00)
[2023-08-06] MEDS: LEVOTHYROXINE SODIUM 88 MCG TABLET PO SCH ×2 (07:30→07:59)
[2023-08-06] MEDS: PANTOPRAZOLE 40 MG TABLET.DR PO SCH ×2 (07:30→07:59)
[2023-08-06] MEDS ORDERED: KEY,NONCONTROL,TO KEEP IN PYXI 1 EA MC ONE (07:56)
[2023-08-06 08:00] VITALS: BP 100/60; TEMP 97.6; O2SAT 94
[2023-08-06] MEDS: MULTIVIT W/MINERALS 1 TAB TABLET PO SCH (09:09)
[2023-08-06] MEDS: OXCARBAZEPINE 150 MG TABLET PO SCH ×2 (09:09→16:44)
[2023-08-06] MEDS: POLYETHYLENE GLYCOL 3350 17 GM POWD.PACK PO SCH (09:09)
[2023-08-06] MEDS: CALCIUM CARB 250MG /VITAMIN D 1 UDTAB PO SCH (09:09)
[2023-08-06] MEDS: MONTELUKAST SODIUM (10MG) 10 MG TABLET PO SCH (09:09)
[2023-08-06] MEDS: NICOTINE PATCH (7MG) 7 MG PATCH.TD24 TD SCH (09:09)
[2023-08-06] MEDS: NALOXONE SL SCH ×3 (09:12→16:47)
[2023-08-06] MEDS: BUPRENORPHINE SL SCH ×3 (09:12→16:47)
[2023-08-06] MEDS: FLUTICASONE/VILANTEROL 1 EACH BLST.W.DEV IH SCH ×2 (09:19→16:53)
[2023-08-06] MEDS: LORAZEPAM 0.5 MG TABLET PO PRN ×2 (09:55→19:47)
[2023-08-06 16:00] VITALS: BP 105/66; TEMP 98; O2SAT 98
[2023-08-06] MEDS: ACETAMINOPHEN 325 MG TABLET PO PRN (19:36)
[2023-08-06 20:00] VITALS: BP 113/67; TEMP 97.4; O2SAT 99
[2023-08-06] MEDS: OLANZAPINE 5 MG TABLET PO SCH (21:34)
[2023-08-06] MEDS: ATORVASTATIN 10 MG TABLET PO SCH (21:34)
[2023-08-07] MEDS: LORAZEPAM 0.5 MG TABLET PO PRN (07:41)
[2023-08-07] MEDS: LEVOTHYROXINE SODIUM 88 MCG TABLET PO SCH (07:41)
[2023-08-07] MEDS: PANTOPRAZOLE 40 MG TABLET.DR PO SCH (07:41)
[2023-08-07 08:00] VITALS: BP_SYST 113; BP_SYST 116; BP_DIAS 61; TEMP 97.6; O2SAT 97
[2023-08-07] MEDS: POLYETHYLENE GLYCOL 3350 17 GM POWD.PACK PO SCH (08:52)
[2023-08-07] MEDS: OXCARBAZEPINE 150 MG TABLET PO SCH ×2 (08:52→16:59)
[2023-08-07] MEDS: CALCIUM CARB 250MG /VITAMIN D 1 UDTAB PO SCH (08:52)
[2023-08-07] MEDS: MONTELUKAST SODIUM (10MG) 10 MG TABLET PO SCH (08:52)
[2023-08-07] MEDS: MULTIVIT W/MINERALS 1 TAB TABLET PO SCH (08:52)
[2023-08-07] MEDS: NICOTINE PATCH (7MG) 7 MG PATCH.TD24 TD SCH (08:53)
[2023-08-07] MEDS ORDERED: KEY,NONCONTROL,TO KEEP IN PYXI 1 EA MC ONE (08:54)
[2023-08-07] MEDS: BUPRENORPHINE SL SCH ×3 (08:55→17:11)
[2023-08-07] MEDS: NALOXONE SL SCH ×3 (08:55→17:11)
[2023-08-07] MEDS: FLUTICASONE/VILANTEROL 1 EACH BLST.W.DEV IH SCH ×2 (09:04→16:59)
[2023-08-07] MEDS ORDERED: LORAZEPAM 0.5 MG TABLET PO ONE (12:30)
[2023-08-07] MEDS: ENSURE ENLIVE CHOC 237 ML CAN PO SCH ×2 (12:39→16:59)
[2023-08-07 16:00] VITALS: BP 110/63; TEMP 97.4; O2SAT 98
[2023-08-07 20:00] VITALS: BP 95/52; TEMP 97.7; O2SAT 97
[2023-08-07] MEDS: OLANZAPINE 5 MG TABLET PO SCH (21:48)
[2023-08-07] MEDS: ATORVASTATIN 10 MG TABLET PO SCH (21:48)
[2023-08-08] MEDS: PANTOPRAZOLE 40 MG TABLET.DR PO SCH (07:34)
[2023-08-08] MEDS: ENSURE ENLIVE CHOC 237 ML CAN PO SCH ×3 (07:34→16:41)
[2023-08-08] MEDS: LEVOTHYROXINE SODIUM 88 MCG TABLET PO SCH (07:34)
[2023-08-08 08:00] VITALS: BP 98/55; TEMP 97.8; O2SAT 96
[2023-08-08] MEDS: OXCARBAZEPINE 150 MG TABLET PO SCH ×2 (09:09→16:41)
[2023-08-08] MEDS: POLYETHYLENE GLYCOL 3350 17 GM POWD.PACK PO SCH (09:09)
[2023-08-08] MEDS: MONTELUKAST SODIUM (10MG) 10 MG TABLET PO SCH (09:09)
[2023-08-08] MEDS: NICOTINE PATCH (7MG) 7 MG PATCH.TD24 TD SCH (09:09)
[2023-08-08] MEDS: MULTIVIT W/MINERALS 1 TAB TABLET PO SCH (09:09)
[2023-08-08] MEDS: CALCIUM CARB 250MG /VITAMIN D 1 UDTAB PO SCH (09:09)
[2023-08-08] MEDS: FLUTICASONE/VILANTEROL 1 EACH BLST.W.DEV IH SCH ×2 (09:17→16:42)
[2023-08-08] MEDS ORDERED: KEY,NONCONTROL,TO KEEP IN PYXI 1 EA MC ONE ×4 (09:21→17:03)
[2023-08-08] MEDS: NALOXONE SL SCH ×3 (09:53→17:07)
[2023-08-08] MEDS: BUPRENORPHINE SL SCH ×3 (09:53→17:07)
[2023-08-08] MEDS: LORAZEPAM 0.5 MG TABLET PO PRN ×2 (11:45→17:53)
[2023-08-08 16:00] VITALS: BP 99/57; TEMP 97.7; O2SAT 97
[2023-08-08 20:35] VITALS: BP 100/54; TEMP 98.2; O2SAT 96
[2023-08-08] MEDS: OLANZAPINE 5 MG TABLET PO SCH (21:20)
[2023-08-08] MEDS: ATORVASTATIN 10 MG TABLET PO SCH (21:20)
[2023-08-09 08:00] VITALS: BP 108/50; TEMP 97.9; O2SAT 100
[2023-08-09] MEDS: ENSURE ENLIVE CHOC 237 ML CAN PO SCH ×3 (08:00→16:56)
[2023-08-09] MEDS ORDERED: KEY,NONCONTROL,TO KEEP IN PYXI 1 EA MC ONE (08:11)
[2023-08-09] MEDS: PANTOPRAZOLE 40 MG TABLET.DR PO SCH (08:24)
[2023-08-09] MEDS: LEVOTHYROXINE SODIUM 88 MCG TABLET PO SCH (08:25)
[2023-08-09] MEDS: BUPRENORPHINE SL SCH ×3 (09:07→16:56)
[2023-08-09] MEDS: NALOXONE SL SCH ×3 (09:07→16:56)
[2023-08-09] MEDS: FLUTICASONE/VILANTEROL 1 EACH BLST.W.DEV IH SCH ×2 (09:10→17:06)
[2023-08-09] MEDS: MONTELUKAST SODIUM (10MG) 10 MG TABLET PO SCH (09:11)
[2023-08-09] MEDS: CALCIUM CARB 250MG /VITAMIN D 1 UDTAB PO SCH (09:11)
[2023-08-09] MEDS: POLYETHYLENE GLYCOL 3350 17 GM POWD.PACK PO SCH (09:11)
[2023-08-09] MEDS: NICOTINE PATCH (7MG) 7 MG PATCH.TD24 TD SCH (09:11)
[2023-08-09] MEDS: MULTIVIT W/MINERALS 1 TAB TABLET PO SCH (09:11)
[2023-08-09] MEDS: OXCARBAZEPINE 150 MG TABLET PO SCH (09:11)
[2023-08-09] MEDS: LORAZEPAM 0.5 MG TABLET PO PRN ×2 (10:55→21:32)
[2023-08-09 12:29] LABS: BASOPHILS % (AUTO) 0.2 % (0.0-2.0); EOSINOPHILS % (AUTO) 0.7 % (0.0-6.0); HEMATOCRIT 40 % (33-45); HEMOGLOBIN 12.9 g/dL (11.5-14.8); LYMPHOCYTES # (AUTO) 0.8 K/uL (0.8-4.8); LYMPHOCYTES % (AUTO) 13.2 % (20.0-44.0); MEAN CORPUSCULAR HEMOGLOBIN 26 PG (26.0-33.0); MEAN CORPUSCULAR HGB CONC 32 g/dl (31.0-36.0); MEAN CORPUSCULAR VOLUME 81 fL (82-100); MONOCYTES # (AUTO) 0.4 K/uL (0.1-1.30); MONOCYTES % (AUTO) 6.2 % (2.0-12.0); NEUTROPHILS # (AUTO) 4.8 K/uL (1.8-8.9); NEUTROPHILS % (AUTO) 79.7 % (43.0-81.0); PLATELET COUNT (AUTO) 291 K/uL (150-450); RED BLOOD CELL COUNT(AUTO) 4.98 MIL/uL (4.0-5.2); RED CELL DISTRIBUTION WIDTH 17.8 % (11.5-15.0); WHITE BLOOD COUNT (AUTO) 6.1 K/uL (4.3-11.0)
[2023-08-09 12:38] VITALS: O2SAT 96
[2023-08-09] MEDS: IPRATROPIUM NEB FS 0.5 MG/2.5 ML AMPUL.NEB NEB SCH ×2 (12:38→19:30)
[2023-08-09 12:43] LABS: ALBUMIN 3.6 g/dL (3.4-5.0); BILIRUBIN,TOTAL 0.6 mg/dL (0.2-1.0); CALCIUM, SERUM 9.5 mg/dL (8.5-10.1); CREATININE 0.7 mg/dL (0.6-1.3); TOTAL PROTEIN, SERUM 7.1 g/dL (6.4-8.2)
[2023-08-09 16:00] VITALS: BP 98/51; TEMP 98.6; O2SAT 97
[2023-08-09] MEDS: ACETAMINOPHEN 325 MG TABLET PO PRN (18:10)
[2023-08-09 20:10] VITALS: BP 106/58; TEMP 98.1; O2SAT 98
[2023-08-09] MEDS: OLANZAPINE 5 MG TABLET PO SCH (21:24)
[2023-08-09] MEDS: ATORVASTATIN 10 MG TABLET PO SCH (21:32)
[2023-08-10] MEDS: IPRATROPIUM NEB FS 0.5 MG/2.5 ML AMPUL.NEB NEB SCH ×3 (01:30→19:30)
[2023-08-10 08:00] VITALS: BP 99/56; TEMP 97.8; O2SAT 96
[2023-08-10] MEDS ORDERED: KEY,NONCONTROL,TO KEEP IN PYXI 1 EA MC ONE (09:42)
[2023-08-10] MEDS: NICOTINE PATCH (7MG) 7 MG PATCH.TD24 TD SCH (09:52)
[2023-08-10] MEDS: POLYETHYLENE GLYCOL 3350 17 GM POWD.PACK PO SCH (09:52)
[2023-08-10] MEDS: MULTIVIT W/MINERALS 1 TAB TABLET PO SCH (09:52)
[2023-08-10] MEDS: MONTELUKAST SODIUM (10MG) 10 MG TABLET PO SCH (09:52)
[2023-08-10] MEDS: LEVOTHYROXINE SODIUM 88 MCG TABLET PO SCH (09:53)
[2023-08-10] MEDS: CALCIUM CARB 250MG /VITAMIN D 1 UDTAB PO SCH (09:53)
[2023-08-10] MEDS: ENSURE ENLIVE CHOC 237 ML CAN PO SCH ×3 (09:53→17:57)
[2023-08-10] MEDS: PANTOPRAZOLE 40 MG TABLET.DR PO SCH (09:53)
[2023-08-10] MEDS: BUPRENORPHINE SL SCH ×3 (09:55→17:53)
[2023-08-10] MEDS: NALOXONE SL SCH ×3 (09:55→17:53)
[2023-08-10] MEDS: FLUTICASONE/VILANTEROL 1 EACH BLST.W.DEV IH SCH ×2 (09:56→18:01)
[2023-08-10] MEDS: LORAZEPAM 0.5 MG TABLET PO PRN ×2 (11:37→17:47)
[2023-08-10] MEDS: ACETAMINOPHEN 325 MG TABLET PO PRN (15:53)
[2023-08-10 16:00] VITALS: BP 97/58; TEMP 97.8; O2SAT 98
[2023-08-10] MEDS: OLANZAPINE 2.5 MG TABLET PO SCH (18:00)
[2023-08-10 20:06] VITALS: BP 101/51; TEMP 97.8; O2SAT 98
[2023-08-10] MEDS: OLANZAPINE 5 MG TABLET PO SCH (21:35)
[2023-08-10] MEDS: ATORVASTATIN 10 MG TABLET PO SCH (21:35)
[2023-08-11] MEDS: IPRATROPIUM NEB FS 0.5 MG/2.5 ML AMPUL.NEB NEB SCH ×2 (01:30→19:30)
[2023-08-11 08:00] VITALS: BP 112/54; TEMP 98.7; O2SAT 96
[2023-08-11] MEDS ORDERED: KEY,NONCONTROL,TO KEEP IN PYXI 1 EA MC ONE (08:07)
[2023-08-11] MEDS: POLYETHYLENE GLYCOL 3350 17 GM POWD.PACK PO SCH (08:24)
[2023-08-11] MEDS: NALOXONE SL SCH ×3 (08:24→16:42)
[2023-08-11] MEDS: BUPRENORPHINE SL SCH ×3 (08:24→16:42)
[2023-08-11] MEDS: OLANZAPINE 2.5 MG TABLET PO SCH ×2 (08:24→16:50)
[2023-08-11] MEDS: MONTELUKAST SODIUM (10MG) 10 MG TABLET PO SCH (08:25)
[2023-08-11] MEDS: NICOTINE PATCH (7MG) 7 MG PATCH.TD24 TD SCH (08:25)
[2023-08-11] MEDS: LEVOTHYROXINE SODIUM 88 MCG TABLET PO SCH (08:25)
[2023-08-11] MEDS: FLUTICASONE/VILANTEROL 1 EACH BLST.W.DEV IH SCH ×2 (08:25→16:43)
[2023-08-11] MEDS: CALCIUM CARB 250MG /VITAMIN D 1 UDTAB PO SCH (08:25)
[2023-08-11] MEDS: MULTIVIT W/MINERALS 1 TAB TABLET PO SCH (08:25)
[2023-08-11] MEDS: PANTOPRAZOLE 40 MG TABLET.DR PO SCH (08:25)
[2023-08-11] MEDS: ACETAMINOPHEN 325 MG TABLET PO PRN ×3 (08:26→22:30)
[2023-08-11] MEDS: ENSURE ENLIVE CHOC 237 ML CAN PO SCH ×3 (08:36→16:49)
[2023-08-11] MEDS: LORAZEPAM 0.5 MG TABLET PO PRN ×2 (10:52→20:42)
[2023-08-11 16:41] VITALS: BP 105/58; TEMP 98.8; O2SAT 100
[2023-08-11 19:33] VITALS: BP 143/63; TEMP 98.9; O2SAT 98
[2023-08-11] MEDS: OLANZAPINE 5 MG TABLET PO SCH (22:31)
[2023-08-11] MEDS: ATORVASTATIN 10 MG TABLET PO SCH (22:31)
[2023-08-12] MEDS: IPRATROPIUM NEB FS 0.5 MG/2.5 ML AMPUL.NEB NEB SCH (00:44)
[2023-08-12] MEDS: LEVOTHYROXINE SODIUM 88 MCG TABLET PO SCH (07:32)
[2023-08-12] MEDS: PANTOPRAZOLE 40 MG TABLET.DR PO SCH (07:32)
[2023-08-12] MEDS: ACETAMINOPHEN 325 MG TABLET PO PRN ×3 (07:32→21:59)
[2023-08-12 08:00] VITALS: BP 121/70; TEMP 98.2; O2SAT 98
[2023-08-12] MEDS: ENSURE ENLIVE CHOC 237 ML CAN PO SCH ×3 (08:05→16:54)
[2023-08-12] MEDS ORDERED: KEY,NONCONTROL,TO KEEP IN PYXI 1 EA MC ONE (08:13)
[2023-08-12] MEDS: POLYETHYLENE GLYCOL 3350 17 GM POWD.PACK PO SCH (08:35)
[2023-08-12] MEDS: MONTELUKAST SODIUM (10MG) 10 MG TABLET PO SCH (08:36)
[2023-08-12] MEDS: OLANZAPINE 2.5 MG TABLET PO SCH ×2 (08:36→16:53)
[2023-08-12] MEDS: CALCIUM CARB 250MG /VITAMIN D 1 UDTAB PO SCH (08:36)
[2023-08-12] MEDS: MULTIVIT W/MINERALS 1 TAB TABLET PO SCH (08:36)
[2023-08-12] MEDS: NICOTINE PATCH (7MG) 7 MG PATCH.TD24 TD SCH ×2 (08:36→12:36)
[2023-08-12] MEDS: BUPRENORPHINE SL SCH ×3 (08:38→16:55)
[2023-08-12] MEDS: NALOXONE SL SCH ×3 (08:38→16:55)
[2023-08-12] MEDS: FLUTICASONE/VILANTEROL 1 EACH BLST.W.DEV IH SCH ×2 (08:49→16:57)
[2023-08-12] MEDS: LORAZEPAM 0.5 MG TABLET PO PRN (11:08)
[2023-08-12 16:00] VITALS: BP 106/68; TEMP 98.4; O2SAT 100
[2023-08-12] MEDS: ATORVASTATIN 10 MG TABLET PO SCH (21:23)
[2023-08-12] MEDS: OLANZAPINE 5 MG TABLET PO SCH (21:24)
[2023-08-13] MEDS: LORAZEPAM 0.5 MG TABLET PO PRN ×3 (07:44→19:53)
[2023-08-13] MEDS: PANTOPRAZOLE 40 MG TABLET.DR PO SCH (07:46)
[2023-08-13] MEDS: LEVOTHYROXINE SODIUM 88 MCG TABLET PO SCH (07:46)
[2023-08-13 08:00] VITALS: BP 123/80; TEMP 97.8; O2SAT 99
[2023-08-13] MEDS ORDERED: KEY,NONCONTROL,TO KEEP IN PYXI 1 EA MC ONE (08:08)
[2023-08-13] MEDS: IPRATROPIUM NEB FS 0.5 MG/2.5 ML AMPUL.NEB NEB SCH ×3 (08:25→19:30)
[2023-08-13] MEDS: MULTIVIT W/MINERALS 1 TAB TABLET PO SCH (09:34)
[2023-08-13] MEDS: CALCIUM CARB 250MG /VITAMIN D 1 UDTAB PO SCH (09:34)
[2023-08-13] MEDS: OLANZAPINE 2.5 MG TABLET PO SCH ×3 (09:34→17:00)
[2023-08-13] MEDS: POLYETHYLENE GLYCOL 3350 17 GM POWD.PACK PO SCH (09:35)
[2023-08-13] MEDS: MONTELUKAST SODIUM (10MG) 10 MG TABLET PO SCH (09:35)
[2023-08-13] MEDS: NICOTINE PATCH (7MG) 7 MG PATCH.TD24 TD SCH (09:36)
[2023-08-13] MEDS: FLUTICASONE/VILANTEROL 1 EACH BLST.W.DEV IH SCH ×2 (09:39→17:11)
[2023-08-13] MEDS: BUPRENORPHINE SL SCH ×3 (09:48→17:00)
[2023-08-13] MEDS: NALOXONE SL SCH ×3 (09:48→17:00)
[2023-08-13] MEDS: ENSURE ENLIVE CHOC 237 ML CAN PO SCH ×3 (09:49→17:11)
[2023-08-13 16:00] VITALS: BP 103/60; TEMP 97.8; O2SAT 96
[2023-08-13 20:55] VITALS: BP 116/64; TEMP 97.9; O2SAT 98
[2023-08-13] MEDS: ATORVASTATIN 10 MG TABLET PO SCH (21:54)
[2023-08-13] MEDS: OLANZAPINE 5 MG TABLET PO SCH (21:54)
[2023-08-14] MEDS: IPRATROPIUM NEB FS 0.5 MG/2.5 ML AMPUL.NEB NEB SCH ×4 (01:30→19:30)
[2023-08-14 08:00] VITALS: BP 122/80; TEMP 97.9; O2SAT 100
[2023-08-14] MEDS: NICOTINE PATCH (7MG) 7 MG PATCH.TD24 TD SCH (08:35)
[2023-08-14] MEDS: CALCIUM CARB 250MG /VITAMIN D 1 UDTAB PO SCH (08:37)
[2023-08-14] MEDS: POLYETHYLENE GLYCOL 3350 17 GM POWD.PACK PO SCH (08:38)
[2023-08-14] MEDS: MONTELUKAST SODIUM (10MG) 10 MG TABLET PO SCH (08:38)
[2023-08-14] MEDS: LEVOTHYROXINE SODIUM 88 MCG TABLET PO SCH (08:38)
[2023-08-14] MEDS: PANTOPRAZOLE 40 MG TABLET.DR PO SCH (08:38)
[2023-08-14] MEDS: OLANZAPINE 2.5 MG TABLET PO SCH ×3 (08:38→16:31)
[2023-08-14] MEDS ORDERED: KEY,NONCONTROL,TO KEEP IN PYXI 1 EA MC ONE (08:46)
[2023-08-14] MEDS: FLUTICASONE/VILANTEROL 1 EACH BLST.W.DEV IH SCH ×2 (08:46→16:51)
[2023-08-14] MEDS: NALOXONE SL SCH ×3 (08:47→16:32)
[2023-08-14] MEDS: BUPRENORPHINE SL SCH ×3 (08:47→16:32)
[2023-08-14] MEDS: ENSURE ENLIVE CHOC 237 ML CAN PO SCH ×3 (08:47→16:51)
[2023-08-14] MEDS: MULTIVIT W/MINERALS 1 TAB TABLET PO SCH (09:11)
[2023-08-14] MEDS: LORAZEPAM 0.5 MG TABLET PO PRN (10:02)
[2023-08-14] MEDS: ACETAMINOPHEN 325 MG TABLET PO PRN ×2 (15:34→23:05)
[2023-08-14 16:00] VITALS: BP 114/60; TEMP 97.9; O2SAT 97
[2023-08-14 20:00] VITALS: BP 108/62; TEMP 98; O2SAT 99
[2023-08-14] MEDS: ATORVASTATIN 10 MG TABLET PO SCH (22:39)
[2023-08-14] MEDS: OLANZAPINE 5 MG TABLET PO SCH (22:39)
[2023-08-15] MEDS: IPRATROPIUM NEB FS 0.5 MG/2.5 ML AMPUL.NEB NEB SCH ×4 (01:30→19:30)
[2023-08-15] MEDS ORDERED: KEY,NONCONTROL,TO KEEP IN PYXI 1 EA MC ONE (07:55)
[2023-08-15 08:00] VITALS: BP 100/80; TEMP 97.6; O2SAT 97
[2023-08-15] MEDS: POLYETHYLENE GLYCOL 3350 17 GM POWD.PACK PO SCH (08:28)
[2023-08-15] MEDS: NICOTINE PATCH (7MG) 7 MG PATCH.TD24 TD SCH (08:28)
[2023-08-15] MEDS: NALOXONE SL SCH ×3 (08:29→16:14)
[2023-08-15] MEDS: OLANZAPINE 2.5 MG TABLET PO SCH ×3 (08:29→16:13)
[2023-08-15] MEDS: ENSURE ENLIVE CHOC 237 ML CAN PO SCH ×3 (08:29→18:16)
[2023-08-15] MEDS: PANTOPRAZOLE 40 MG TABLET.DR PO SCH (08:29)
[2023-08-15] MEDS: BUPRENORPHINE SL SCH ×3 (08:29→16:14)
[2023-08-15] MEDS: MONTELUKAST SODIUM (10MG) 10 MG TABLET PO SCH (08:29)
[2023-08-15] MEDS: LEVOTHYROXINE SODIUM 88 MCG TABLET PO SCH (08:29)
[2023-08-15] MEDS: MULTIVIT W/MINERALS 1 TAB TABLET PO SCH (08:29)
[2023-08-15] MEDS: CALCIUM CARB 250MG /VITAMIN D 1 UDTAB PO SCH (08:30)
[2023-08-15] MEDS: FLUTICASONE/VILANTEROL 1 EACH BLST.W.DEV IH SCH ×2 (08:31→16:39)
[2023-08-15] MEDS: ACETAMINOPHEN 325 MG TABLET PO PRN ×2 (09:20→20:36)
[2023-08-15] MEDS: LORAZEPAM 0.5 MG TABLET PO PRN ×2 (11:14→19:59)
[2023-08-15 16:00] VITALS: BP 100/61; TEMP 97.7; O2SAT 98
[2023-08-15 20:06] VITALS: BP 132/72; TEMP 97.9; O2SAT 100
[2023-08-15] MEDS: OLANZAPINE 5 MG TABLET PO SCH (21:05)
[2023-08-15] MEDS: ATORVASTATIN 10 MG TABLET PO SCH (21:05)
[2023-08-16] MEDS: IPRATROPIUM NEB FS 0.5 MG/2.5 ML AMPUL.NEB NEB SCH ×4 (01:30→19:30)
[2023-08-16 08:00] VITALS: BP 105/63; TEMP 98.2; O2SAT 98
[2023-08-16] MEDS ORDERED: KEY,NONCONTROL,TO KEEP IN PYXI 1 EA MC ONE (08:05)
[2023-08-16] MEDS: OLANZAPINE 2.5 MG TABLET PO SCH ×3 (08:27→16:46)
[2023-08-16] MEDS: NICOTINE PATCH (7MG) 7 MG PATCH.TD24 TD SCH (08:27)
[2023-08-16] MEDS: POLYETHYLENE GLYCOL 3350 17 GM POWD.PACK PO SCH (08:27)
[2023-08-16] MEDS: MULTIVIT W/MINERALS 1 TAB TABLET PO SCH (08:27)
[2023-08-16] MEDS: MONTELUKAST SODIUM (10MG) 10 MG TABLET PO SCH (08:28)
[2023-08-16] MEDS: PANTOPRAZOLE 40 MG TABLET.DR PO SCH (08:28)
[2023-08-16] MEDS: LEVOTHYROXINE SODIUM 88 MCG TABLET PO SCH (08:28)
[2023-08-16] MEDS: CALCIUM CARB 250MG /VITAMIN D 1 UDTAB PO SCH (08:28)
[2023-08-16] MEDS: FLUTICASONE/VILANTEROL 1 EACH BLST.W.DEV IH SCH ×2 (08:33→16:47)
[2023-08-16] MEDS: ENSURE ENLIVE CHOC 237 ML CAN PO SCH ×3 (08:34→16:47)
[2023-08-16] MEDS: BUPRENORPHINE SL SCH ×3 (08:35→16:47)
[2023-08-16] MEDS: NALOXONE SL SCH ×3 (08:35→16:47)
[2023-08-16] MEDS: LORAZEPAM 0.5 MG TABLET PO PRN ×2 (10:18→22:08)
[2023-08-16 15:18] LABS: BASOPHILS % (AUTO) 0.9 % (0.0-2.0); EOSINOPHILS % (AUTO) 0.5 % (0.0-6.0); HEMATOCRIT 36 % (33-45); LYMPHOCYTES # (AUTO) 0.8 K/uL (0.8-4.8); LYMPHOCYTES % (AUTO) 14.9 % (20.0-44.0); MEAN CORPUSCULAR HEMOGLOBIN 27 PG (26.0-33.0); MEAN CORPUSCULAR HGB CONC 34 g/dl (31.0-36.0); MEAN CORPUSCULAR VOLUME 80 fL (82-100); MONOCYTES # (AUTO) 0.4 K/uL (0.1-1.30); MONOCYTES % (AUTO) 6.7 % (2.0-12.0); NEUTROPHILS # (AUTO) 4.1 K/uL (1.8-8.9); PLATELET COUNT (AUTO) 267 K/uL (150-450); RED BLOOD CELL COUNT(AUTO) 4.47 MIL/uL (4.0-5.2); RED CELL DISTRIBUTION WIDTH 17.3 % (11.5-15.0); WHITE BLOOD COUNT (AUTO) 5.3 K/uL (4.3-11.0)
[2023-08-16 15:48] LABS: ALANINE AMINOTRANSFERASE 311 U/L (12-78); ALBUMIN 3.2 g/dL (3.4-5.0); ALKALINE PHOSPHATASE 106 U/L (46-116); ASPARTATE AMINOTRANSFERASE 129 U/L (15-37); BILIRUBIN,TOTAL 0.3 mg/dL (0.2-1.0); CARBON DIOXIDE 24 mmol/L (21-32); CHLORIDE 103 mmol/L (98-107); CREATININE 0.7 mg/dL (0.6-1.3); GLUCOSE 147 mg/dL (74-106); POTASSIUM 4.1 mmol/L (3.5-5.1); SODIUM SERUM 137 mmol/L (136-145); TOTAL PROTEIN, SERUM 6.6 g/dL (6.4-8.2); UREA NITROGEN, BLOOD 20 mg/dL (7-18)
[2023-08-16 16:00] VITALS: BP 122/79; TEMP 98.1; O2SAT 95
[2023-08-16] MEDS: ACETAMINOPHEN 325 MG TABLET PO PRN (16:46)
[2023-08-16 18:31] LABS: APPEARANCE,URINE CLEAR (CLEAR); BILIRUBIN,URINE NEGATIVE (NEGATIVE); BLOOD, URINE NEGATIVE Ery/uL (NEGATIVE); COLOR,URINE YELLOW (YELLOW); KETONES,URINE NEGATIVE (NEGATIVE); LEUKOCYTE ESTERASE ,URINE NEGATIVE (NEGATIVE); NITRITE, URINE NEGATIVE (NEGATIVE); PROTEIN,URINE NEGATIVE (NEGATIVE); UGLUCOSE NEGATIVE (NEGATIVE); UROBILINOGEN,URINE 0.2 EU/dL (0.2)
[2023-08-16 21:47] VITALS: BP 106/62; TEMP 98.2; O2SAT 99
[2023-08-16] MEDS: ATORVASTATIN 10 MG TABLET PO SCH (22:00)
[2023-08-16] MEDS: OLANZAPINE 5 MG TABLET PO SCH (22:03)
[2023-08-17] MEDS: IPRATROPIUM NEB FS 0.5 MG/2.5 ML AMPUL.NEB NEB SCH ×4 (01:30→19:30)
[2023-08-17] MEDS: PANTOPRAZOLE 40 MG TABLET.DR PO SCH (07:54)
[2023-08-17] MEDS: LEVOTHYROXINE SODIUM 88 MCG TABLET PO SCH (07:54)
[2023-08-17] MEDS: ENSURE ENLIVE CHOC 237 ML CAN PO SCH ×3 (07:54→16:07)
[2023-08-17 08:00] VITALS: BP 100/55; TEMP 97.8; O2SAT 97
[2023-08-17] MEDS: FLUTICASONE/VILANTEROL 1 EACH BLST.W.DEV IH SCH ×2 (08:17→16:13)
[2023-08-17] MEDS: POLYETHYLENE GLYCOL 3350 17 GM POWD.PACK PO SCH (08:17)
[2023-08-17] MEDS: OLANZAPINE 2.5 MG TABLET PO SCH ×3 (08:18→16:13)
[2023-08-17] MEDS: MONTELUKAST SODIUM (10MG) 10 MG TABLET PO SCH (08:18)
[2023-08-17] MEDS: CALCIUM CARB 250MG /VITAMIN D 1 UDTAB PO SCH (08:19)
[2023-08-17] MEDS: MULTIVIT W/MINERALS 1 TAB TABLET PO SCH (08:19)
[2023-08-17] MEDS: NICOTINE PATCH (7MG) 7 MG PATCH.TD24 TD SCH (08:20)
[2023-08-17] MEDS ORDERED: KEY,NONCONTROL,TO KEEP IN PYXI 1 EA MC ONE (08:27)
[2023-08-17] MEDS: BUPRENORPHINE SL SCH ×3 (10:18→16:16)
[2023-08-17] MEDS: NALOXONE SL SCH ×3 (10:18→16:16)
[2023-08-17] MEDS: ACETAMINOPHEN 325 MG TABLET PO PRN ×2 (10:20→17:54)
[2023-08-17] MEDS: LORAZEPAM 0.5 MG TABLET PO PRN ×2 (11:55→22:18)
[2023-08-17 16:00] VITALS: BP 100/57; TEMP 98.1; O2SAT 98
[2023-08-17 20:00] VITALS: BP 96/48; TEMP 98.1; O2SAT 96
[2023-08-17] MEDS: ATORVASTATIN 10 MG TABLET PO SCH (21:25)
[2023-08-17] MEDS: OLANZAPINE 5 MG TABLET PO SCH (21:25)
[2023-08-17 22:14] VITALS: BP 111/53
[2023-08-18] MEDS: IPRATROPIUM NEB FS 0.5 MG/2.5 ML AMPUL.NEB NEB SCH ×4 (01:30→19:30)
[2023-08-18] MEDS: LEVOTHYROXINE SODIUM 88 MCG TABLET PO SCH (07:54)
[2023-08-18] MEDS: PANTOPRAZOLE 40 MG TABLET.DR PO SCH (07:54)
[2023-08-18] MEDS: ENSURE ENLIVE CHOC 237 ML CAN PO SCH ×3 (07:55→16:17)
[2023-08-18 08:00] VITALS: BP 105/57; TEMP 97.9; O2SAT 97
[2023-08-18] MEDS ORDERED: KEY,NONCONTROL,TO KEEP IN PYXI 1 EA MC ONE (08:08)
[2023-08-18] MEDS: FLUTICASONE/VILANTEROL 1 EACH BLST.W.DEV IH SCH ×2 (08:10→16:18)
[2023-08-18] MEDS: OLANZAPINE 2.5 MG TABLET PO SCH ×3 (08:11→16:28)
[2023-08-18] MEDS: CALCIUM CARB 250MG /VITAMIN D 1 UDTAB PO SCH (08:11)
[2023-08-18] MEDS: POLYETHYLENE GLYCOL 3350 17 GM POWD.PACK PO SCH (08:11)
[2023-08-18] MEDS: MONTELUKAST SODIUM (10MG) 10 MG TABLET PO SCH (08:11)
[2023-08-18] MEDS: MULTIVIT W/MINERALS 1 TAB TABLET PO SCH (08:13)
[2023-08-18] MEDS: NICOTINE PATCH (7MG) 7 MG PATCH.TD24 TD SCH (08:14)
[2023-08-18] MEDS: CLOTRIMAZOLE 1% 15 GM TUBE TP SCH ×2 (08:26→16:19)
[2023-08-18] MEDS: NALOXONE SL SCH ×3 (09:52→16:19)
[2023-08-18] MEDS: BUPRENORPHINE SL SCH ×3 (09:52→16:19)
[2023-08-18] MEDS: ACETAMINOPHEN 325 MG TABLET PO PRN ×2 (10:33→19:33)
[2023-08-18 11:26] LABS: ALBUMIN 3.2 g/dL (3.4-5.0); BILIRUBIN,DIRECT 0.1 mg/dL (0.0-0.2); BILIRUBIN,TOTAL 0.3 mg/dL (0.2-1.0); TOTAL PROTEIN, SERUM 6.7 g/dL (6.4-8.2)
[2023-08-18 12:11] LABS: HBSAG SCREEN Negative (Negative); HEPATITIS A AB, IgM Negative (Negative); HEPATITIS B CORE AB, IgM Negative (Negative)
[2023-08-18] MEDS: LORAZEPAM 0.5 MG TABLET PO PRN (14:33)
[2023-08-18 16:00] VITALS: BP 98/60; TEMP 98.6; O2SAT 96
[2023-08-18 20:24] VITALS: BP 103/56; TEMP 97.8; O2SAT 99
[2023-08-18] MEDS: OLANZAPINE 5 MG TABLET PO SCH (21:02)
[2023-08-18] MEDS: ATORVASTATIN 10 MG TABLET PO SCH (21:02)
[2023-08-19] MEDS: IPRATROPIUM NEB FS 0.5 MG/2.5 ML AMPUL.NEB NEB SCH ×4 (01:30→19:30)
[2023-08-19] MEDS: ACETAMINOPHEN 325 MG TABLET PO PRN ×3 (05:53→20:27)
[2023-08-19 08:00] VITALS: BP 103/62; TEMP 97.6; O2SAT 97
[2023-08-19] MEDS: LEVOTHYROXINE SODIUM 88 MCG TABLET PO SCH (08:05)
[2023-08-19] MEDS: ENSURE ENLIVE CHOC 237 ML CAN PO SCH ×3 (08:05→17:36)
[2023-08-19] MEDS: PANTOPRAZOLE 40 MG TABLET.DR PO SCH (08:05)
[2023-08-19] MEDS ORDERED: KEY,NONCONTROL,TO KEEP IN PYXI 1 EA MC ONE (08:13)
[2023-08-19] MEDS: MONTELUKAST SODIUM (10MG) 10 MG TABLET PO SCH (09:00)
[2023-08-19] MEDS: POLYETHYLENE GLYCOL 3350 17 GM POWD.PACK PO SCH (09:00)
[2023-08-19] MEDS: NALOXONE SL SCH ×3 (09:00→17:21)
[2023-08-19] MEDS: CALCIUM CARB 250MG /VITAMIN D 1 UDTAB PO SCH (09:00)
[2023-08-19] MEDS: MULTIVIT W/MINERALS 1 TAB TABLET PO SCH (09:00)
[2023-08-19] MEDS: BUPRENORPHINE SL SCH ×3 (09:00→17:21)
[2023-08-19] MEDS: NICOTINE PATCH (7MG) 7 MG PATCH.TD24 TD SCH (09:00)
[2023-08-19] MEDS: OLANZAPINE 2.5 MG TABLET PO SCH ×3 (09:00→17:21)
[2023-08-19] MEDS: FLUTICASONE/VILANTEROL 1 EACH BLST.W.DEV IH SCH ×2 (09:00→17:21)
[2023-08-19] MEDS: CLOTRIMAZOLE 1% 15 GM TUBE TP SCH ×2 (09:01→17:22)
[2023-08-19 09:43] LABS: ALBUMIN 3.3 g/dL (3.4-5.0); BILIRUBIN,DIRECT 0.1 mg/dL (0.0-0.2); BILIRUBIN,TOTAL 0.3 mg/dL (0.2-1.0); TOTAL PROTEIN, SERUM 6.7 g/dL (6.4-8.2)
[2023-08-19] MEDS: LORAZEPAM 0.5 MG TABLET PO PRN ×2 (10:08→20:27)
[2023-08-19 16:00] VITALS: BP 110/66; TEMP 98; O2SAT 100
[2023-08-19 20:00] VITALS: BP 130/70; TEMP 97.6; O2SAT 97
[2023-08-19] MEDS: ATORVASTATIN 10 MG TABLET PO SCH (21:07)
[2023-08-19] MEDS: OLANZAPINE 5 MG TABLET PO SCH (21:07)
[2023-08-20] MEDS: IPRATROPIUM NEB FS 0.5 MG/2.5 ML AMPUL.NEB NEB SCH ×3 (01:08→13:28)
[2023-08-20 07:37] LABS: BILIRUBIN,DIRECT 0.1 mg/dL (0.0-0.2); BILIRUBIN,TOTAL 0.3 mg/dL (0.2-1.0); TOTAL PROTEIN, SERUM 6.1 g/dL (6.4-8.2)
[2023-08-20] MEDS: ACETAMINOPHEN 325 MG TABLET PO PRN ×2 (08:26→13:32)
[2023-08-20] MEDS: MONTELUKAST SODIUM (10MG) 10 MG TABLET PO SCH (08:26)
[2023-08-20] MEDS: PANTOPRAZOLE 40 MG TABLET.DR PO SCH (08:26)
[2023-08-20] MEDS: CALCIUM CARB 250MG /VITAMIN D 1 UDTAB PO SCH (08:26)
[2023-08-20] MEDS: LEVOTHYROXINE SODIUM 88 MCG TABLET PO SCH (08:26)
[2023-08-20] MEDS: ENSURE ENLIVE CHOC 237 ML CAN PO SCH ×2 (08:27→12:00)
[2023-08-20] MEDS: POLYETHYLENE GLYCOL 3350 17 GM POWD.PACK PO SCH (08:27)
[2023-08-20] MEDS: MULTIVIT W/MINERALS 1 TAB TABLET PO SCH (08:27)
[2023-08-20] MEDS: OLANZAPINE 2.5 MG TABLET PO SCH ×2 (08:27→13:31)
[2023-08-20] MEDS: CLOTRIMAZOLE 1% 15 GM TUBE TP SCH (08:28)
[2023-08-20] MEDS: NICOTINE PATCH (7MG) 7 MG PATCH.TD24 TD SCH (08:28)
[2023-08-20] MEDS ORDERED: KEY,NONCONTROL,TO KEEP IN PYXI 1 EA MC ONE (08:34)
[2023-08-20] MEDS: FLUTICASONE/VILANTEROL 1 EACH BLST.W.DEV IH SCH (08:40)
[2023-08-20] MEDS: BUPRENORPHINE SL SCH ×2 (08:40→13:32)
[2023-08-20] MEDS: NALOXONE SL SCH ×2 (08:40→13:32)
[2023-08-20] MEDS: LORAZEPAM 0.5 MG TABLET PO PRN (10:02)
== END 2023-08-20 15:00 | DRG 885 ==
LOC: GPS 20:59
PROVIDERS: ADMIT Psychiatry & Neurology Psychosomatic Medicine; ATTEND Nurse Practitioner Acute Care
DX: F25.1 Schizoaffective disorder, depressive type (principal); E44.0 Moderate protein-calorie malnutrition; R45.851 Suicidal ideations; F29 Unspecified psychosis not due to a substance or known physiological condition; F41.9 Anxiety disorder, unspecified; F31.9 Bipolar disorder, unspecified; F60.9 Personality disorder, unspecified; Z73.6 Limitation of activities due to disability; E78.5 Hyperlipidemia, unspecified; E03.9 Hypothyroidism, unspecified; J44.9 Chronic obstructive pulmonary disease, unspecified; E88.09 Other disorders of plasma-protein metabolism, not elsewhere classified; F17.200 Nicotine dependence, unspecified, uncomplicated; G89.29 Other chronic pain; Z88.0 Allergy status to penicillin; Z88.1 Allergy status to other antibiotic agents; R74.01 Elevation of levels of liver transaminase levels
CPT/HCPCS: 36415; 76700-TC; 80053-TC; 80061-TC; 80076-TC; 82962-TC; 82977-TC; 85025-TC; 87081-TC; 87086-TC; 94799-TC